=== PATIENT | female | born 1970 | race Caucasian/White ===

== ENCOUNTER 2021-05-05 19:52 | Inpatient (IN) | payer BC ==
[2021-05-05] MEDS ORDERED: MORPHINE SULFATE 4 MG/ML SYRINGE IV STA (19:59)
[2021-05-05] MEDS ORDERED: SODIUM CHLORIDE 0.9% 1,000 ML IV STA ×2 (19:59→21:05)
[2021-05-05] MEDS ORDERED: ONDANSETRON 4 MG/2 ML VIAL IVP STA (19:59)
[2021-05-05 20:27] LABS: Basophils % (A) 1 %; Eosinophils # (A) 0.2 k/uL (0-0.7); Eosinophils % (A) 3 %; HCT 41.6 % (34.0-46.0); HGB 14.4 gm/dL (11.4-16.0); Lymphocytes # (A) 3.6 k/uL (1.0-4.8); Lymphocytes % (A) 47 %; MCH 31.2 pg (25.0-35.0); MCHC 34.5 g/dL (31.0-37.0); MCV 90.4 fL (80.0-100.0); Mean Platelet Volume 7.6; Monocytes # (A) 0.3 k/uL (0-1.0); Monocytes % (A) 4 %; Neutrophils # (A) 3.4 k/uL (1.3-7.7); Neutrophils % (A) 44 %; Platelet Count 282 k/uL (150-450); RBC 4.61 m/uL (3.80-5.40); RDW 11.8 % (11.5-15.5); WBC 7.7 k/uL (3.8-10.6)
[2021-05-05 20:33] LABS: Appearance,Urine Clear (Clear); Bilirubin,Urine Negative (Negative); Blood,Urine Negative (Negative); Color,Urine Light Yellow; Glucose,Urine (UA) Negative (Negative); Ketones,Urine Negative (Negative); Leukocyte Esterase,Urine Negative (Negative); Nitrite,Urine Negative (Negative); Protein,Urine Negative (Negative); Specific Gravity,Urine 1.006 (1.001-1.035); Urobilinogen,Urine <2.0 mg/dL (<2.0)
[2021-05-05 20:38] LABS: ALT 126 U/L (4-34); AST 296 U/L (14-36); African American GFR (CKD) >90 (>60 ml/min/1.73 sqM); Albumin 5.1 g/dL (3.5-5.0); Alkaline Phosphatase 155 U/L (38-126); Anion Gap 14 mmol/L; Blood Urea Nitrogen 16 mg/dL (7-17); Calcium 9.7 mg/dL (8.4-10.2); Carbon Dioxide 21 mmol/L (22-30); Chloride 105 mmol/L (98-107); Glucose 73 mg/dL (74-99); Non-African American GFR(CKD) >90 (>60 ml/min/1.73 sqM); Potassium 4.3 mmol/L (3.5-5.1); Sodium 140 mmol/L (137-145); Total Protein 8.4 g/dL (6.3-8.2)
[2021-05-05 20:44] LABS: Amylase 909 U/L (30-110)
[2021-05-05 20:59] LABS: Lipase 16271 U/L (23-300)
[2021-05-05] MEDS ORDERED: HYDROmorphone 1 MG/ML 1 ML SYRINGE IVP STA (21:05)
[2021-05-05] MEDS ORDERED: NALOXONE 0.4 MG/ML 1 ML VIAL IV PRN (21:11)
[2021-05-05] MEDS ORDERED: SODIUM CHLORIDE 0.9% 1,000 ML IV SCH (21:15)
--- NOTE | 2021-05-05 21:15 | ED ---
Abdominal Pain HPI - General Source: patient, RN notes reviewed Mode of arrival: ambulatory Limitations: no limitations <Chirag Stephenson - Last Filed: 05/05/21 21:12> <Katie Gilman - Last Filed: 05/09/21 23:41> - General Chief Complaint: Abdominal Pain Stated Complaint: Abd pain,Chest Pain Time Seen by Provider: 05/05/21 19:59 - History of Present Illness Initial Comments: Patient is a 50-year-old female that presents to the emergency department complaining of epigastric burning pain with radiation to her chest. She notes that she does have a history of pancreatitis and this feels exactly like last time she had a flareup. Patient notes that been years since her last pancreatitis. She was otherwise well-appearing. She denied any aggravating factors. She notes she doesn't drink large coryza alcohol. She was in pretty severe discomfort and in tears during the interview. She denied shortness of breath headache diarrhea constipation fever fatigue chills. (Chirag Stephenson) - Related Data Home Medications Medication Instructions Recorded Confirmed DULoxetine HCL [Cymbalta] 30 mg PO HS 05/05/21 05/05/21 Allergies Allergy/AdvReac Type Severity Reaction Status Date / Time No Known Allergies Allergy Verified 05/05/21 19:58 Review of Systems ROS Other: All systems not noted in ROS Statement are negative. <Chirag Stephenson - Last Filed: 05/05/21 21:12> ROS Other: All systems not noted in ROS Statement are negative. <Katie Gilman - Last Filed: 05/09/21 23:41> ROS Statement: Those systems with pertinent positive or pertinent negative responses have been documented in the HPI. Past Medical History Additional Past Medical History / Comment(s): pancreatitis History of Any Multi-Drug Resistant Organisms: None Reported Past Surgical History: No Surgical Hx Reported Past Psychological History: No Psychological Hx Reported Smoking Status: Former smoker Past Alcohol Use History: Rare Past Drug Use History: None Reported <Chirag Stephenson - Last Filed: 05/05/21 21:12> General Exam Limitations: no limitations General appearance: alert, in no apparent distress Head exam: Present: atraumatic, normocephalic, normal inspection Eye exam: Present: normal appearance, PERRL, EOMI. Absent: scleral icterus, conjunctival injection, periorbital swelling ENT exam: Present: normal exam, mucous membranes moist Neck exam: Present: normal inspection Respiratory exam: Present: normal lung sounds bilaterally. Absent: respiratory distress, wheezes, rales, rhonchi, stridor Cardiovascular Exam: Present: regular rate, normal rhythm, normal heart sounds. Absent: systolic murmur, diastolic murmur, rubs, gallop, clicks GI/Abdominal exam: Present: soft, tenderness (Epigastric region), normal bowel sounds. Absent: distended, guarding, rebound, rigid Extremities exam: Present: normal inspection, full ROM, normal capillary refill. Absent: tenderness, pedal edema, joint swelling, calf tenderness Neurological exam: Present: alert, oriented X3 Psychiatric exam: Present: normal affect, normal mood Skin exam: Present: warm, dry, intact, normal color. Absent: rash <Chirag Stephenson - Last Filed: 05/05/21 21:12> Course Vital Signs 05/05/21 05/05/21 19:54 22:06 Temperature 97.7 F 97.1 F L Pulse Rate 83 96 Respiratory 18 18 Rate Blood Pressure 140/67 122/71 O2 Sat by Pulse 97 99 Oximetry Medical Decision Making - Lab Data Result diagrams: 05/05/21 20:20 05/05/21 20:20 - EKG Data -: EKG Interpreted by Ca EKG shows normal: sinus rhythm Rate: normal <Chirag Stephenson - Last Filed: 05/05/21 21:12> - Lab Data Result diagrams: 05/09/21 06:48 05/09/21 06:48 <Katie Gilman - Last Filed: 05/09/21 23:41> - Medical Decision Making 50-year-old female complaining of epigastric pain. Labs, 1 L normal saline, 4 g of morphine, 4 mg of Zofran ordered. Labs: CBC unremarkable, CMP shows elevated liver enzymes negative troponin elevated amylase at 909, elevated lipase at 16,000, urinalysis is negative. 1 mg of Dilaudid and 1 more liter of normal saline ordered. CT of the abdomen and pelvis ordered. Case discussed with Dr. Gilman, patient will be admitted. Dr. Carmona was consulted and will accept the admit. (Chirag Stephenson) I was available for consultation in the emergency department. The history and physical exam were done by the midlevel provider. I was consulted for this patients care. I reviewed the case with the midlevel provider and based on their presentation of the patient, I agree with the assessment, medical decision making and plan of care as documented. Chart was dictated using [employer] dictation software. Attempts were made to correct any dictation errors however some typographical errors may persist. Patient was seen during a national state of emergency due to the Covid-19 pandemic. (Katie Gilman) - Lab Data Lab Results 05/05/21 05/05/21 05/05/21 Range/Units 20:20 20:20 20:20 WBC 7.7 (3.8-10.6) k/uL RBC 4.61 (3.80-5.40) m/uL Hgb 14.4 (11.4-16.0) gm/dL Hct 41.6 (34.0-46.0) % MCV 90.4 (80.0-100.0) fL MCH 31.2 (25.0-35.0) pg MCHC 34.5 (31.0-37.0) g/dL RDW 11.8 (11.5-15.5) % Plt Count 282 (150-450) k/uL MPV 7.6 Neutrophils % 44 % Lymphocytes % 47 % Monocytes % 4 % Eosinophils % 3 % Basophils % 1 % Neutrophils # 3.4 (1.3-7.7) k/uL Lymphocytes # 3.6 (1.0-4.8) k/uL Monocytes # 0.3 (0-1.0) k/uL Eosinophils # 0.2 (0-0.7) k/uL Basophils # 0.0 (0-0.2) k/uL Sodium 140 (137-145) mmol/L Potassium 4.3 (3.5-5.1) mmol/L Chloride 105 (98-107) mmol/L Carbon Dioxide 21 L (22-30) mmol/L Anion Gap 14 mmol/L BUN 16 (7-17) mg/dL Creatinine 0.67 (0.52-1.04) mg/dL Est GFR (CKD-EPI)AfAm >90 (>60 ml/min/1.73 sqM) Est GFR (CKD-EPI)NonAf >90 (>60 ml/min/1.73 sqM) Glucose 73 L (74-99) mg/dL Calcium 9.7 (8.4-10.2) mg/dL Total Bilirubin 1.0 (0.2-1.3) mg/dL AST 296 H (14-36) U/L ALT 126 H (4-34) U/L Alkaline Phosphatase 155 H (38-126) U/L Troponin I (0.000-0.034) ng/mL Total Protein 8.4 H (6.3-8.2) g/dL Albumin 5.1 H (3.5-5.0) g/dL Amylase 909 H* (30-110) U/L Lipase 88016 H (23-300) U/L Urine Color Light Yellow Urine Appearance Clear (Clear) Urine pH 5.0 (5.0-8.0) Ur Specific [place] 1.006 (1.001-1.035) Urine Protein Negative (Negative) Urine Glucose (UA) Negative (Negative) Urine Ketones Negative (Negative) Urine Blood Negative (Negative) Urine Nitrite Negative (Negative) Urine Bilirubin Negative (Negative) Urine Urobilinogen <2.0 (<2.0) mg/dL Ur Leukocyte Esterase Negative (Negative) 05/05/21 Range/Units 20:20 WBC (3.8-10.6) k/uL RBC (3.80-5.40) m/uL Hgb (11.4-16.0) gm/dL Hct (34.0-46.0) % MCV (80.0-100.0) fL MCH (25.0-35.0) pg MCHC (31.0-37.0) g/dL RDW (11.5-15.5) % Plt Count (150-450) k/uL MPV Neutrophils % % Lymphocytes % % Monocytes % % Eosinophils % % Basophils % % Neutrophils # (1.3-7.7) k/uL Lymphocytes # (1.0-4.8) k/uL Monocytes # (0-1.0) k/uL Eosinophils # (0-0.7) k/uL Basophils # (0-0.2) k/uL Sodium (137-145) mmol/L Potassium (3.5-5.1) mmol/L Chloride (98-107) mmol/L Carbon Dioxide (22-30) mmol/L Anion Gap mmol/L BUN (7-17) mg/dL Creatinine (0.52-1.04) mg/dL Est GFR (CKD-EPI)AfAm (>60 ml/min/1.73 sqM) Est GFR (CKD-EPI)NonAf (>60 ml/min/1.73 sqM) Glucose (74-99) mg/dL Calcium (8.4-10.2) mg/dL Total Bilirubin (0.2-1.3) mg/dL AST (14-36) U/L ALT (4-34) U/L Alkaline Phosphatase (38-126) U/L Troponin I <0.012 (0.000-0.034) ng/mL Total Protein (6.3-8.2) g/dL Albumin (3.5-5.0) g/dL Amylase (30-110) U/L Lipase (23-300) U/L Urine Color Urine Appearance (Clear) Urine pH (5.0-8.0) Ur Specific [place] (1.001-1.035) Urine Protein (Negative) Urine Glucose (UA) (Negative) Urine Ketones (Negative) Urine Blood (Negative) Urine Nitrite (Negative) Urine Bilirubin (Negative) Urine Urobilinogen (<2.0) mg/dL Ur Leukocyte Esterase (Negative) - EKG Data EKG Comments: Ventricular rate 81 bpm, SD interval 166 ms, QRS duration 80 ms, QTC 473 ms, PRT axes 68/68/12. Normal sinus rhythm, nonspecific T-wave abnormality, prolonged QT, abnormal ECG. (Chirag Stephenson) Disposition Is patient prescribed a controlled substance at d/c from ED?: No Time of Disposition: 21:14 <Chirag Stephenson - Last Filed: 05/05/21 21:12> <Katie Gilman - Last Filed: 05/09/21 23:41> Clinical Impression: Pancreatitis Disposition: ADMITTED IP TO THIS HOSP Condition: Stable
--- NOTE | 2021-05-05 22:18 | CT ---
EXAMINATION TYPE: CT abdomen pelvis w con DATE OF EXAM: 05/05/2021 COMPARISON: None HISTORY: RLQ pain CT DLP: 658.4 mGycm Automated exposure control for dose reduction was used. CONTRAST: Performed with IV Contrast, patient injected with 100 mL of Isovue 300. Images obtained from the diaphragm to the floor the pelvis with IV contrast. Lung bases are clear. There is no pleural effusion. Heart size is normal. There is no pericardial eff usion. Liver spleen stomach pancreas appear intact. There are clips from cholecystectomy. There is mi ld ectasia of the biliary tree. Intrahepatic bile ducts are slightly dilated. The common bile duct me asures 13 mm. There is no adrenal mass. Kidneys show satisfactory contrast opacification. There is no hydronephrosi s. Ureters are not dilated. Bladder distends smoothly. There is no inguinal hernia. There is no free fluid in the pelvis. There is no evidence of pelvic mass. Uterus is anteverted. There are clips from tubal ligation. There is no mesenteric edema. There is no ascites or free air. There is no bowel obstruction. Appendi x not seen. No sign of thickened appendix. Lumbar vertebra have normal alignment. Posterior elements are intact. There is no compression fractur e. Bony pelvis is intact. IMPRESSION: Mildly dilated biliary tree. No evidence of a mass in the distal common bile duct. Appendix not seen. No sign of thickened appendix.
[2021-05-05] MEDS ORDERED: ALPRAZolam 1 MG TAB PO STA (22:40)
[2021-05-05] MEDS ORDERED: MELATONIN 3 MG TABLET PO PRN (22:58)
[2021-05-05] MEDS ORDERED: ACETAMINOPHEN TAB 325 MG TAB PO PRN (22:58)
[2021-05-05] MEDS ORDERED: HYDROmorphone 1 MG/ML 1 ML SYRINGE IV PRN (22:58)
[2021-05-05] MEDS ORDERED: bisacodyL 5 MG TABLET.DR PO PRN (22:58)
--- NOTE | 2021-05-05 23:06 | P.HPIM ---
History of Present Illness H&P Date: 05/05/21 Chief Complaint: abdominal pain Patient is a 50-year-old female with a past medical history of pancreatitis who presented to the ER with complaints of abdominal pain. On arrival to the ER her vital signs were within normal limits. Laboratory analysis showed elevated AST, elevated ALT, lipase 16,271, amylase 999. She was found have an elevated albumin and total protein. CT abdomen and pelvis showed prior cholecystectomy with mildly dilated biliary tree. In the ER she received 1 mg of Dilaudid, 4 mg of morphine, and 2 L of normal saline. She was admitted for further monitoring. Patient seen and examined at bedside. This morning prior to work she had several episodes of diarrhea which is unusual for her. she then came home from work was doing well. She had several glasses of wine and then started having pain on the left side of her abdomen that wrapped around. It quickly worsen. She also started having nausea and vomiting. They therefore presented to the ER as this is similar to her prior episodes of pancreatitis. her last hospitalization for pancreatitis was 3-4 years ago. She states she started having pancreatitis after ERCP. She has been eating more sweets than typical but denies any increased fatty intake. She typically drinks 3-4 times monthly. She was having some chills at home as well. Pertinent positives and negatives as discussed in HPI, a complete review of systems was performed and all other systems are negative. General: non toxic, no distress, appears at stated age Derm: warm, dry Head: atraumatic, normocephalic, symmetric Eyes: EOMI, no lid lag, anicteric sclera, pupils equal round reactive to light ENT: Nose and ears atraumatic, no thrush, no pharyngeal erythema Mouth: no lip lesion, mucus membranes dry Cardiovascular: S1S2 reg, no murmur, positive posterior tibial pulse bilateral, no edema, capillary refill less than 2 seconds Lungs: clear to ascultation bilateral, no ronchi, no rales, no wheeze, no accessory muscle use Abdominal: soft, hypoactive bowel sounds, pain with placing my stethoscope on abd Ext: no gross muscle atrophy, muscle strength muscle strengthappears equal and symmetrical 4 extremities on gross examination, no contractures Neuro: CN II-XI grossly intact, no focal nuero deficits noted Psych: Alert, oriented, appropriate affect Assessment/Plan: Acute pancreatitis with history of prior pancreatitis - NPO - IVF - pain control - antiemeitcs - check triglyceride level Transaminitis Elevated serum protein levels - IVF - repeat in AM The patient is admitted with an anticipated greater than 2 midnight stay for evaluation of Pancreatitis Surrogate decision-maker: DVT prophylaxis: Lovenox Discussed with: patient, nursing, ED provider, and Anticipated discharge date: in 2-[address]: home A total of 45minutes was spent on the care of this complex patient more than 50% of the time was spent in counseling and care coordination. Past Medical History Additional Past Medical History / Comment(s): pancreatitis History of Any Multi-Drug Resistant Organisms: None Reported Past Surgical History: Appendectomy, Cholecystectomy, Tonsillectomy Past Psychological History: No Psychological Hx Reported Smoking Status: Former smoker Past Alcohol Use History: Occasional (etoh 3-4 times monthly ) Past Drug Use History: None Reported Medications and Allergies Home Medications Medication Instructions Recorded Confirmed Type DULoxetine HCL [Cymbalta] 30 mg PO HS 05/05/21 05/05/21 History Allergies Allergy/AdvReac Type Severity Reaction Status Date / Time No Known Allergies Allergy Verified 05/05/21 19:58 Physical Exam Osteopathic Statement: *. No significant issues noted on an osteopathic st ructural exam other than those noted in the History and Physical/Consult. Vitals: Vital Signs Temp Pulse Resp BP Pulse Ox 05/05/21 22:06 97.1 F L 96 18 122/71 99 05/05/21 19:54 97.7 F 83 18 140/67 97 Intake and Output 05/05/21 05/05/21 05/05/21 06:59 14:59 22:59 Other: Weight 63.503 kg Results CBC & Chem 7: 05/05/21 20:20 05/05/21 20:20 Labs: Abnormal Lab Results - Last 24 Hours (Table) 05/05/21 Range/Units 20:20 Carbon Dioxide 21 L (22-30) mmol/L Glucose 73 L (74-99) mg/dL AST 296 H (14-36) U/L ALT 126 H (4-34) U/L Alkaline Phosphatase 155 H (38-126) U/L Total Protein 8.4 H (6.3-8.2) g/dL Albumin 5.1 H (3.5-5.0) g/dL Amylase 909 H* (30-110) U/L Lipase 42883 H (23-300) U/L
[2021-05-05] MEDS: HYDROmorphone 1 MG/ML 1 ML SYRINGE IVP PRN (23:16)
[2021-05-05] MEDS: ONDANSETRON 4 MG/2 ML VIAL IVP PRN (23:19)
[2021-05-05] MEDS: LACTATED RINGERS 1,000 ML IV SCH (23:41)
[2021-05-06 05:28] LABS: HCT 36.2 % (34.0-46.0); HGB 12.6 gm/dL (11.4-16.0); MCH 32.3 pg (25.0-35.0); MCHC 34.9 g/dL (31.0-37.0); MCV 92.7 fL (80.0-100.0); Mean Platelet Volume 7.6; Platelet Count 225 k/uL (150-450); RBC 3.91 m/uL (3.80-5.40); RDW 11.8 % (11.5-15.5); WBC 6.2 k/uL (3.8-10.6)
[2021-05-06] MEDS: HYDROmorphone 0.5 MG/0.5 ML SYRINGE IVP PRN ×5 (05:31→19:48)
[2021-05-06] MEDS: LACTATED RINGERS 1,000 ML IV SCH ×3 (05:33→19:53)
[2021-05-06 05:38] LABS: ALT 188 U/L (4-34); AST 274 U/L (14-36); African American GFR (CKD) >90 (>60 ml/min/1.73 sqM); Albumin 3.6 g/dL (3.5-5.0); Albumin/Globulin Ratio 1.4; Alkaline Phosphatase 98 U/L (38-126); Anion Gap 8 mmol/L; Blood Urea Nitrogen 11 mg/dL (7-17); Calcium 8.3 mg/dL (8.4-10.2); Carbon Dioxide 23 mmol/L (22-30); Chloride 108 mmol/L (98-107); Globulin 2.5 g/dL; Glucose 106 mg/dL (74-99); Non-African American GFR(CKD) >90 (>60 ml/min/1.73 sqM); Potassium 4.3 mmol/L (3.5-5.1); Sodium 139 mmol/L (137-145); Total Bilirubin 0.8 mg/dL (0.2-1.3); Total Protein 6.1 g/dL (6.3-8.2)
[2021-05-06] MEDS: ENOXAPARIN 40 MG/0.4 ML SYRINGE SQ SCH (07:57)
[2021-05-06 10:13] LABS: Triglycerides 90.7 mg/dL (0.00-149.00)
--- NOTE | 2021-05-06 10:42 | P.PN ---
Subjective Progress Note Date: 05/06/21 Pt still c/o significant pain in the abdomen. TG levels pending. Ongoing IVF and IV pain medication. NPO for another 24 hours. Objective - Vital Signs Vital signs: Vital Signs Temp 97.7 F 05/06/21 08:12 Pulse 64 05/06/21 08:12 Resp 14 05/06/21 08:12 BP 105/71 05/06/21 08:12 Pulse Ox 96 05/06/21 08:12 Intake & Output 05/05/21 05/06/21 05/06/21 18:59 06:59 18:59 Intake Total 150 Balance 150 Weight 63.503 kg Intake: Intake, IV Titration 150 Amount Lactated Ringers 1,000 ml 150 @ 150 mls/hr IV .Q6H40M [facility] Rx#:[id number] Other: Voiding Method Toilet # Voids 2 # Bowel Movements 1 - Exam Gen: awake, alert HEENT: normocephalic, atraumatic, good hearing acuity, moist mucous membranes Resp: good air exchange, breathing comfortably with no accessory muscle use CVS: good distal perfusion x 4, GI: epigastric ttp : no SPT, no CVAT, roblero catheter not present MSK: no pitting edema, no clubbing Neuro: non-focal, moving all extremities Psych: cooperative, euthymic mood - Labs CBC & Chem 7: 05/06/21 04:44 05/06/21 04:44 Labs: Abnormal Lab Results - Last 24 Hours (Table) 05/05/21 05/06/21 05/06/21 Range/Units 20:20 04:44 04:44 Chloride 108 H (98-107) mmol/L Carbon Dioxide 21 L (22-30) mmol/L Glucose 73 L 106 H (74-99) mg/dL Calcium 8.3 L (8.4-10.2) mg/dL AST 296 H 274 H (14-36) U/L ALT 126 H 188 H (4-34) U/L Alkaline Phosphatase 155 H (38-126) U/L Total Protein 8.4 H 6.1 L (6.3-8.2) g/dL Albumin 5.1 H (3.5-5.0) g/dL Amylase 909 H* (30-110) U/L Lipase 65290 H 1710 H (23-300) U/L Assessment and Plan Assessment: Acute pancreatitis with history of prior pancreatitis - NPO for another 24 hours, then slowly advance - IVF - pain control - antiemeitcs - check triglyceride level Transaminitis Elevated serum protein levels - IVF to be continued - continue to monitor, likely related to pancreatic flare, lipase is improved, total protein has come down to 6.1 Surrogate decision-maker: DVT prophylaxis: Lovenox Anticipated discharge date: in [address]: home
[2021-05-06] MEDS: ONDANSETRON 4 MG/2 ML VIAL IVP PRN (17:02)
[2021-05-06] MEDS: DULoxetine HCL 30 MG CAPSULE.DR PO SCH (19:48)
--- NOTE | 2021-05-07 08:23 | P.PN ---
Subjective Progress Note Date: 05/07/21 Principal diagnosis: abdominal pain Patient is a 50-year-old female with a past medical history of pancreatitis who presented to the ER with complaints of abdominal pain. On arrival to the ER her vital signs were within normal limits. Laboratory analysis showed elevated AST, elevated ALT, lipase 16,271, amylase 999. She was found have an elevated albumin and total protein. CT abdomen and pelvis showed prior cholecystectomy with mildly dilated biliary tree. In the ER she received 1 mg of Dilaudid, 4 mg of morphine, and 2 L of normal saline. She was admitted for further monitoring. Patient seen and examined at bedside. Her Belly pain is much better. No shortness of breath, No nausea. She has only been having ice chip. General: non toxic, no distress, appears at stated age Derm: warm, dry Head: atraumatic, normocephalic, symmetric Eyes: EOMI, no lid lag, anicteric sclera Mouth: no lip lesion, mucus membranes dry Cardiovascular: S1S2 reg, no murmur, positive posterior tibial pulse bilateral, Lungs: CTA bilateral, no rhonchi, no rales , no accessory muscle use Abdominal: soft, + tender to palpation diffusely, no guarding, no appreciable organomegaly Ext: no gross muscle atrophy, no edema, no contractures Neuro: CN II-XI grossly intact, no focal neuro deficits Psych: Alert, oriented, appropriate affect Assessment/Plan: Acute pancreatitis with history of prior pancreatitis - advance to clear liquid diet, if tolerated advance to fulls - IVF decreased by 1/2 - pain control , oral added - antiemeitcs - triglyceride level normal Transaminitis, improving - repeat in AM Elevated serum protein level, resolved Await AM labs DVT prophylaxis: Lovenox Discussed with: Patient, nursing Anticipated discharge: in AM Anticipated discharge place: home A total of 35] minutes was spent on the care of this complex patient more than 50% of the time was spent in counseling and care coordination. Objective - Vital Signs Vital signs: Vital Signs Temp 98.9 F 05/07/21 02:00 Pulse 76 05/07/21 02:00 Resp 16 05/07/21 02:00 BP 118/73 05/07/21 02:00 Pulse Ox 98 05/07/21 02:00 Intake & Output 12/24/21 12/25/21 12/25/21 18:59 06:59 18:59 Intake Total 1650 Balance 1650 Intake: Intake, IV Titration 1650 Amount Lactated Ringers 1,000 ml 1650 @ 150 mls/hr IV .Q6H40M [facility] Rx#:[id number] Other: Voiding Method Toilet # Voids 2 3 # Bowel Movements 1 - Labs CBC & Chem 7: 05/06/21 04:44 05/06/21 04:44 Labs: Abnormal Lab Results - Last 24 Hours (Table) 05/06/21 Range/Units 04:44 Lipase 1710 H (14-63) U/L
[2021-05-07] MEDS: LACTATED RINGERS 1,000 ML IV SCH ×3 (08:40→23:05)
[2021-05-07] MEDS: HYDROmorphone 1 MG/ML 1 ML SYRINGE IVP PRN ×3 (08:41→17:47)
[2021-05-07] MEDS: ENOXAPARIN 40 MG/0.4 ML SYRINGE SQ SCH (08:41)
[2021-05-07 09:05] LABS: Basophils # (A) 0.03 X 10*3/uL (0.00-0.10); Basophils % (A) 0.5 %; Eosinophils # (A) 0.12 X 10*3/uL (0.04-0.35); Eosinophils % (A) 1.8 %; HCT 33.3 % (37.2-46.3); HGB 11.3 g/dL (12.0-15.0); Lymphocytes # (A) 2.27 X 10*3/uL (0.90-5.00); Lymphocytes % (A) 34.4 %; MCH 31.6 pg (27.0-32.0); MCHC 33.9 g/dL (32.0-37.0); Mean Platelet Volume 10.8 fL (9.5-12.2); Monocytes # (A) 0.37 X 10*3/uL (0.20-1.00); Monocytes % (A) 5.6 %; Neutrophils # (A) 3.78 X 10*3/uL (1.80-7.70); Neutrophils % (A) 57.4 %; Platelet Count 213 X 10*3/uL (140-440); RBC 3.58 X 10*6/uL (4.10-5.20); RDW 11.9 % (11.5-14.5); WBC 6.59 X 10*3/uL (4.50-10.00)
[2021-05-07 09:23] LABS: African American GFR (CKD) 123.2 (60.0-200.0); Anion Gap 13.3 mmol/L (10.00-18.00); BUN/Creat Ratio 13.67 Ratio (12.00-20.00); Blood Urea Nitrogen 8.2 mg/dL (9.0-27.0); Calcium 8.3 mg/dL (8.7-10.3); Carbon Dioxide 20.7 mmol/L (20.0-27.5); Magnesium 1.5 mg/dL (1.5-2.4); Non-African American GFR(CKD) 106.3 (60.0-200.0); Potassium 4.5 mmol/L (3.5-5.5)
[2021-05-07 10:42] LABS: Glucose,Whole Blood 80 mg/dL (75-99)
[2021-05-07] MEDS: MAGNESIUM SULFATE-D5W PMX 1 GM in DEXTROSE/WATER 1 100ML.BAG IVPB SCH ×2 (11:57→13:35)
[2021-05-07] MEDS: DULoxetine HCL 30 MG CAPSULE.DR PO SCH (19:46)
[2021-05-07] MEDS: HYDROcodone/APAP 5-325MG 1 EACH TAB PO PRN (23:28)
[2021-05-08] MEDS: ENOXAPARIN 40 MG/0.4 ML SYRINGE SQ SCH (08:59)
[2021-05-08] MEDS: HYDROcodone/APAP 5-325MG 1 EACH TAB PO PRN ×2 (08:59→14:00)
[2021-05-08] MEDS: LACTATED RINGERS 1,000 ML IV SCH (09:00)
[2021-05-08] MEDS: ONDANSETRON 4 MG/2 ML VIAL IVP PRN ×2 (14:00→19:30)
--- NOTE | 2021-05-08 17:08 | P.PN ---
Subjective Progress Note Date: 05/08/21 (delayed charting seen at 0930) Principal diagnosis: abdominal pain Patient is a 50-year-old female with a past medical history of pancreatitis who presented to the ER with complaints of abdominal pain. On arrival to the ER her vital signs were within normal limits. Laboratory analysis showed elevated AST, elevated ALT, lipase 16,271, amylase 999. She was found have an elevated albumin and total protein. CT abdomen and pelvis showed prior cholecystectomy with mildly dilated biliary tree. In the ER she received 1 mg of Dilaudid, 4 mg of morphine, and 2 L of normal saline. She was admitted for further monitoring. She was placed on IV fluids. These were decreased morning of 05/07 that she felt she couldn't tolerate a diet, however she was unable to tolerate clear li quids consistently. Patient seen and examined at bedside. She tolerated Warm clear liquids but not cold clear liquid chest pain. It caused her to have some nausea and thinks that "not sit right" in her belly. Today her belly is feeling better and she is not having any nausea. She again wants to try to advance her diet. General: non toxic, no distress, appears at stated age Derm: warm, dry Head: atraumatic, normocephalic, symmetric Eyes: EOMI, no lid lag, anicteric sclera Mouth: no lip lesion, mucus membranes dry Cardiovascular: S1S2 reg, no murmur, positive posterior tibial pulse bilateral, Lungs: CTA bilateral, no rhonchi, no rales , no accessory muscle use Abdominal: soft, + tender to palpation diffusely, no guarding, no appreciable organomegaly Ext: no gross muscle atrophy, no edema, no contractures Neuro: CN II-XI grossly intact, no focal neuro deficits Psych: Alert, oriented, appropriate affect Assessment/Plan: Acute pancreatitis with history of prior pancreatitis Transaminitis, improving Elevated serum protein level, resolved - Continue IV fluids -Advance to full liquid diet -Pain medications -Antiemetics - possible home this afternoon if feels improved, if not repeat labs in a.m. Await AM labs DVT prophylaxis: Lovenox Discussed with: Patient, nursing Anticipated discharge: in AM Anticipated discharge place: home A total of 20 minutes was spent on the care of this complex patient more than 50% of the time was spent in counseling and care coordination. Objective - Vital Signs Vital signs: Vital Signs Temp 98.6 F 05/08/21 14:00 Pulse 56 L 05/08/21 14:00 Resp 16 05/08/21 14:00 BP 138/84 05/08/21 14:00 Pulse Ox 96 05/08/21 14:00 Intake & Output 05/07/21 05/08/21 05/08/21 18:59 06:59 18:59 Other: Voiding Method Toilet Toilet # Voids 3 3 - Labs CBC & Chem 7: 05/07/21 05:16 05/07/21 05:16
[2021-05-08] MEDS: HYDROmorphone 1 MG/ML 1 ML SYRINGE IVP PRN (17:17)
[2021-05-08] MEDS: DULoxetine HCL 30 MG CAPSULE.DR PO SCH (19:28)
[2021-05-09] MEDS: HYDROcodone/APAP 5-325MG 1 EACH TAB PO PRN ×3 (00:48→22:13)
[2021-05-09] MEDS: LACTATED RINGERS 1,000 ML IV SCH ×2 (03:04→18:37)
[2021-05-09 07:09] LABS: HCT 35.7 % (34.0-46.0); HGB 12.1 gm/dL (11.4-16.0); MCH 32.1 pg (25.0-35.0); MCV 94.3 fL (80.0-100.0); Mean Platelet Volume 7.7; Platelet Count 191 k/uL (150-450); RBC 3.79 m/uL (3.80-5.40); RDW 11.6 % (11.5-15.5); WBC 3.5 k/uL (3.8-10.6)
[2021-05-09 07:20] LABS: ALT 122 U/L (4-34); AST 92 U/L (14-36); African American GFR (CKD) >90 (>60 ml/min/1.73 sqM); Albumin 3.4 g/dL (3.5-5.0); Albumin/Globulin Ratio 1.4; Alkaline Phosphatase 80 U/L (38-126); Anion Gap 6 mmol/L; Blood Urea Nitrogen 5 mg/dL (7-17); Calcium 8.7 mg/dL (8.4-10.2); Carbon Dioxide 28 mmol/L (22-30); Chloride 103 mmol/L (98-107); Globulin 2.5 g/dL; Glucose 74 mg/dL (74-99); Non-African American GFR(CKD) >90 (>60 ml/min/1.73 sqM); Potassium 3.9 mmol/L (3.5-5.1); Sodium 137 mmol/L (137-145); Total Bilirubin 1.1 mg/dL (0.2-1.3); Total Protein 5.9 g/dL (6.3-8.2)
[2021-05-09] MEDS: ENOXAPARIN 40 MG/0.4 ML SYRINGE SQ SCH (08:49)
[2021-05-09] MEDS: ONDANSETRON 4 MG/2 ML VIAL IVP PRN (13:51)
--- NOTE | 2021-05-09 17:12 | P.PN ---
Subjective Progress Note Date: 05/09/21 (delayed charting seen at 1005) Principal diagnosis: abdominal pain Patient is a 50-year-old female with a past medical history of pancreatitis who presented to the ER with complaints of abdominal pain. On arrival to the ER her vital signs were within normal limits. Laboratory analysis showed elevated AST, elevated ALT, lipase 16,271, amylase 999. She was found have an elevated albumin and total protein. CT abdomen and pelvis showed prior cholecystectomy with mildly dilated biliary tree. In the ER she received 1 mg of Dilaudid, 4 mg of morphine, and 2 L of normal saline. She was admitted for further monitoring. She was placed on IV fluids. These were decreased morning of 05/07 that she felt she couldn't tolerate a diet, however she was unable to tolerate clear li quids consistently. Patient seen and examined at bedside. More pain today, did not tolerate full li quid, will go back to clears. No chest pain, no shortness of breath, mild nausea. General: non toxic, no distress, appears at stated age Derm: warm, dry Head: atraumatic, normocephalic, symmetric Eyes: EOMI, no lid lag, anicteric sclera Mouth: no lip lesion, mucus membranes dry Cardiovascular: S1S2 reg, no murmur, positive posterior tibial pulse bilateral, Lungs: Decreased bs bilateral, no rhonchi, no rales , no accessory muscle use Abdominal: soft, + tender to palpation diffusely, no guarding, no appreciable organomegaly Ext: no gross muscle atrophy, no edema, no contractures Neuro: CN II-XI grossly intact, no focal neuro deficits Psych: Alert, oriented, appropriate affect Assessment/Plan: Acute pancreatitis with history of prior pancreatitis Transaminitis, improving Elevated serum protein level, resolved - Continue IV fluids - Clear liquid diet - Pain medications - Antiemetics - Repeat CMP and lipase in AM DVT prophylaxis: Lovenox Discussed with: Patient, nursing Anticipated discharge: in 2-[address]: home A total of 20 minutes was spent on the care of this complex patient more than 50% of the time was spent in counseling and care coordination. Objective - Vital Signs Vital signs: Vital Signs Temp 98.0 F 05/09/21 14:00 Pulse 50 L 05/09/21 14:00 Resp 18 05/09/21 14:00 BP 134/82 05/09/21 14:00 Pulse Ox 95 05/09/21 14:00 Intake & Output 05/08/21 05/09/21 05/09/21 18:59 06:59 18:59 Other: Voiding Method Toilet Toilet # Voids 3 2 - Labs CBC & Chem 7: 05/09/21 06:48 05/09/21 06:48 Labs: Abnormal Lab Results - Last 24 Hours (Table) 05/09/21 05/09/21 Range/Units 06:48 06:48 WBC 3.5 L (3.8-10.6) k/uL RBC 3.79 L (3.80-5.40) m/uL BUN 5 L (7-17) mg/dL AST 92 H (14-36) U/L ALT 122 H (4-34) U/L Total Protein 5.9 L (6.3-8.2) g/dL Albumin 3.4 L (3.5-5.0) g/dL
[2021-05-09] MEDS: DULoxetine HCL 30 MG CAPSULE.DR PO SCH (19:23)
[2021-05-09] MEDS: LOPERAMIDE 2 MG CAP PO PRN (23:12)
[2021-05-10] MEDS: HYDROmorphone 1 MG/ML 1 ML SYRINGE IVP PRN (00:12)
[2021-05-10] MEDS: LACTATED RINGERS 1,000 ML IV SCH ×2 (00:15→09:18)
[2021-05-10 08:34] LABS: ALT 121 U/L (4-34); AST 99 U/L (14-36); African American GFR (CKD) >90 (>60 ml/min/1.73 sqM); Albumin 3.7 g/dL (3.5-5.0); Albumin/Globulin Ratio 1.5; Alkaline Phosphatase 84 U/L (38-126); Anion Gap 12 mmol/L; Blood Urea Nitrogen 6 mg/dL (7-17); Calcium 8.7 mg/dL (8.4-10.2); Carbon Dioxide 26 mmol/L (22-30); Chloride 100 mmol/L (98-107); Globulin 2.5 g/dL; Lipase 159 U/L (23-300); Non-African American GFR(CKD) >90 (>60 ml/min/1.73 sqM); Potassium 3.9 mmol/L (3.5-5.1); Sodium 138 mmol/L (137-145); Total Protein 6.2 g/dL (6.3-8.2)
[2021-05-10 08:38] LABS: Glucose 46 mg/dL (74-99)
[2021-05-10 08:42] LABS: Glucose,Whole Blood 54 mg/dL (75-99)
[2021-05-10 08:58] LABS: Glucose,Whole Blood 86 mg/dL (75-99)
[2021-05-10] MEDS: ENOXAPARIN 40 MG/0.4 ML SYRINGE SQ SCH (09:17)
[2021-05-10] MEDS: LOPERAMIDE 2 MG CAP PO PRN (09:22)
[2021-05-10 11:55] LABS: Glucose,Whole Blood 66 mg/dL (75-99)
[2021-05-10 12:05] VITALS: BMI 25.6
[2021-05-10 12:46] LABS: Glucose,Whole Blood 123 mg/dL (75-99)
--- NOTE | 2021-05-10 13:32 | P.PN ---
Subjective Progress Note Date: 05/10/21 Principal diagnosis: abdominal pain Patient is a 50-year-old female with a past medical history of pancreatitis who presented to the ER with complaints of abdominal pain. On arrival to the ER her vital signs were within normal limits. Laboratory analysis showed elevated AST, elevated ALT, lipase 16,271, amylase 999. She was found have an elevated albumin and total protein. CT abdomen and pelvis showed prior cholecystectomy with mildly dilated biliary tree. In the ER she received 1 mg of Dilaudid, 4 mg of morphine, and 2 L of normal saline. She was admitted for further monitoring. She was placed on IV fluids. These were decreased morning of 05/07 that she felt she couldn't tolerate a diet, however she was unable to tolerate clear liquids consistently. Overnight on 05/10 she developed profuse diarrhea which responded to Imodium. Patient seen and examined at bedside. Reports that overnight she had severe diarrhea and Having to run to the bathroom with loose watery stools. She reports that she has frequent diarrhea at home as well as abdominal cramping. We discussed concerns for chronic pancreatitis or pancreatic insufficiency. She continues to have diarrhea we will start pancreatic enzymes. We discussed that she should follow-up with Dr. Chowdary in the outpatient setting for further evaluation. General: non toxic, no distress, appears at stated age Derm: warm, dry Head: atraumatic, normocephalic, symmetric Eyes: EOMI, no lid lag, anicteric sclera Mouth: no lip lesion, mucus membranes dry Cardiovascular: S1S2 reg, no murmur, positive posterior tibial pulse bilateral, Lungs: Decreased bs bilateral, no rhonchi, no rales , no accessory muscle use Abdominal: soft, + tender to palpation right left lower quadrant, no guarding, no appreciable organomegaly Ext: no gross muscle atrophy, no edema, no contractures Neuro: CN II-XI grossly intact, no focal neuro deficits Psych: Alert, oriented, appropriate affect Assessment/Plan: Acute pancreatitis with history of prior pancreatitis Diarrhea Hypoglycemia likely related to above Transaminitis, improving Elevated serum protein level, resolved - Continue IV fluids - Advance to full liquid diet - Pain medications - Antiemetics - Repeat CMP and lipase in AM -If diarrhea continues we'll start pancreatic enzymes, check C. diff, and stool cultures. May be related to sugar alcohols -Outpatient follow-up with GI DVT prophylaxis: Lovenox Discussed with: Patient, nursing Anticipated discharge: in 1-[address]: home A total of 25 minutes was spent on the care of this complex patient more than 50% of the time was spent in counseling and care coordination. Objective - Vital Signs Vital signs: Vital Signs Temp 98.5 F 05/10/21 08:00 Pulse 59 L 05/10/21 08:00 Resp 16 05/10/21 08:00 BP 138/70 05/10/21 08:38 Pulse Ox 96 05/10/21 08:00 Intake & Output 05/09/21 05/10/21 05/10/21 18:59 06:59 18:59 Intake Total 1410 Balance 1410 Weight 63.503 kg Intake: Intake, IV Titration 750 Amount Lactated Ringers 1,000 ml 750 @ 75 mls/hr IV .[id number] BILL Rx#:[id number] Oral 660 Other: # Voids 2 # Bowel Movements 2 - Labs CBC & Chem 7: 05/09/21 06:48 05/10/21 04:13 Labs: Abnormal Lab Results - Last 24 Hours (Table) 05/10/21 05/10/21 05/10/21 Range/Units 04:13 08:41 11:53 BUN 6 L (7-17) mg/dL Glucose 46 L* (74-99) mg/dL POC Glucose (mg/dL) 54 L 66 L (75-99) mg/dL AST 99 H (14-36) U/L ALT 121 H (4-34) U/L Total Protein 6.2 L (6.3-8.2) g/dL 05/10/21 Range/Units 12:44 BUN (7-17) mg/dL Glucose (74-99) mg/dL POC Glucose (mg/dL) 123 H (75-99) mg/dL AST (14-36) U/L ALT (4-34) U/L Total Protein (6.3-8.2) g/dL
[2021-05-10] MEDS: HYDROcodone/APAP 5-325MG 1 EACH TAB PO PRN (14:50)
--- NOTE | 2021-05-10 15:32 | XR ---
EXAMINATION TYPE: XR abdomen 2V DATE OF EXAM: 05/10/2021 CLINICAL DATA: 50 year-old female with diarrhea, bowel obstruction, [facility] COMPARISON: CT 05/05/2021 FINDINGS: Lung bases are clear. No evidence for free intraperitoneal air. A couple prominent small bowel loops measuring up to 3.0 cm. No additional dilated small bowel. Scatt ered colonic air is present with some air-fluid levels in the right side of the colon. Small air-flui d levels within the small bowel as well. Cholecystectomy clips. Bilateral tubal ligation clips. Multiple surgical clips in the bilateral ingui nal regions. IMPRESSION: 1. Scattered air-fluid levels within a few small bowel loops and also within the right side of the co toro. Findings suggest liquid stool/diarrheal state. Correlate for an enteritis or generalized ileus. A couple loops of small bowel on the left are borderline distended up to 3.0 cm. This is a nonspecifi c bowel gas pattern but overall nonobstructive at this time. Consider short interval follow-up. 2. No significant stool. No free air.
[2021-05-10] MEDS: LIPASE 5,000/PROTEASE 17,000/AMYLASE 24,000 PO SCH (16:38)
[2021-05-10 16:44] LABS: Glucose,Whole Blood 73 mg/dL (75-99)
[2021-05-10] MEDS: DULoxetine HCL 30 MG CAPSULE.DR PO SCH (19:22)
[2021-05-11 00:43] LABS: Glucose,Whole Blood 96 mg/dL (75-99)
[2021-05-11] MEDS: LACTATED RINGERS 1,000 ML IV SCH (06:09)
[2021-05-11 06:49] LABS: MCH 31.1 pg (25.0-35.0); MCHC 33.4 g/dL (31.0-37.0); MCV 93.2 fL (80.0-100.0); Mean Platelet Volume 8.2; Platelet Count 215 k/uL (150-450); RBC 3.86 m/uL (3.80-5.40); RDW 11.8 % (11.5-15.5); WBC 4.2 k/uL (3.8-10.6)
[2021-05-11 06:53] LABS: Glucose,Whole Blood 82 mg/dL (75-99)
[2021-05-11 07:06] LABS: ALT 119 U/L (4-34); AST 92 U/L (14-36); African American GFR (CKD) >90 (>60 ml/min/1.73 sqM); Albumin 3.7 g/dL (3.5-5.0); Albumin/Globulin Ratio 1.4; Alkaline Phosphatase 81 U/L (38-126); Anion Gap 12 mmol/L; Blood Urea Nitrogen 5 mg/dL (7-17); Calcium 8.8 mg/dL (8.4-10.2); Carbon Dioxide 23 mmol/L (22-30); Chloride 101 mmol/L (98-107); Globulin 2.6 g/dL; Glucose 79 mg/dL (74-99); Non-African American GFR(CKD) >90 (>60 ml/min/1.73 sqM); Potassium 3.7 mmol/L (3.5-5.1); Sodium 136 mmol/L (137-145); Total Bilirubin 0.9 mg/dL (0.2-1.3); Total Protein 6.3 g/dL (6.3-8.2)
[2021-05-11 07:23] VITALS: RESP 18
[2021-05-11] MEDS: LIPASE 5,000/PROTEASE 17,000/AMYLASE 24,000 PO SCH ×2 (09:32→12:05)
[2021-05-11] MEDS: ENOXAPARIN 40 MG/0.4 ML SYRINGE SQ SCH (09:32)
[2021-05-11] MEDS: HYDROcodone/APAP 5-325MG 1 EACH TAB PO PRN (14:07)
[2021-05-11] MEDS: ONDANSETRON 4 MG/2 ML VIAL IVP PRN (14:07)
[2021-05-11 14:14] VITALS: BP 136/78; PULSE 57; TEMP 97.8
--- NOTE | 2021-05-11 17:49 | P.DS ---
Providers Date of admission: 05/05/21 21:05 Expected date of discharge: 05/11/21 Attending physician: Felecia Carmona DO Primary care physician: Physician Nonstaff Hospital Course: Discharge Diagnosis: Acute pancreatitis with history of prior pancreatitis Pancreatic insufficiency Hypoglycemia likely related to above Transaminitis, improving Elevated serum protein level, resolved Hospital Course: Patient is a 50-year-old female with a past medical history of pancreatitis who presented to the ER with complaints of abdominal pain. On arrival to the ER her vital signs were within normal limits. Laboratory analysis showed elevated AST, elevated ALT, lipase 16,271, amylase 999. She was found have an elevated albumin and total protein. CT abdomen and pelvis showed prior cholecystectomy with mildly dilated biliary tree. In the ER she received 1 mg of Dilaudid, 4 mg of morphine, and 2 L of normal saline. She was admitted for further monitoring. She was placed on IV fluids. These were decreased morning of 05/07 that she felt she couldn't tolerate a diet, however she was unable to tolerate clear liquids consistently. Overnight on 05/10 she developed profuse diarrhea which responded to Imodium. When we attempted to allow her to eat again her diarrhea returned. She was started on pancreatic enzymes and her diarrhea resolved. She does report that she has had intermittent diarrhea concerns or pancreatic insufficiency for quite some time. She was determined stable for discharge home. She will continue on pancreatic enzymes with meals. She'll follow up with Dr. Davis for shannan lamb of pancreatic insufficiency. Follow-up with PCP. Patient seen and examined at bedside. Feeling better today, pancreatic enzymes helped to resolve diarrhea, nausea better, abdominal fullness is better, pain has subsided. Vital signs reviewed and stable. General: non toxic, no distress, appears at stated age Derm: warm, dry Head: atraumatic, normocephalic, symmetric Eyes: EOMI, no lid lag, anicteric sclera Mouth: no lip lesion, mucus membranes moist Cardiovascular: S1S2 reg, no murmur, positive posterior tibial pulse bilateral, Lungs: CTA bilateral, no rhonchi, no rales , no accessory muscle use Abdominal: soft, tender to palpation periepigastric, no guarding, no appreciable organomegaly Ext: no gross muscle atrophy, no edema, no contractures Neuro: CN II-XI grossly intact, no focal neuro deficits Psych: Alert, oriented, appropriate affect A total of 37 minutes of time were spent preparing this complex discharge summary . Patient Condition at Discharge: Stable Plan - Discharge Summary Discharge Rx Participant: No New Discharge Prescriptions: New HYDROcodone/APAP 5-325MG [Hudson 5-325] 1 each PO Q6HR PRN #15 tab PRN Reason: Pain Ondansetron [Zofran] 4 mg PO Q8HR PRN #30 tab PRN Reason: Nausea Lipase/Protease/Amylase [Zenpep Dr 5,000 Unit Capsule] 1 each PO TID-W/MEALS #90 capsule Continue DULoxetine HCL [Cymbalta] 30 mg PO HS Discharge Medication List DULoxetine HCL [Cymbalta] 30 mg PO HS 05/05/21 [History] HYDROcodone/APAP 5-325MG [Hudson 5-325] 1 each PO Q6HR PRN #15 tab 05/11/21 [Rx] Lipase/Protease/Amylase [Zenpep Dr 5,000 Unit Capsule] 1 each PO TID-W/MEALS #90 capsule 05/11/21 [Rx] Ondansetron [Zofran] 4 mg PO Q8HR PRN #30 tab 05/11/21 [Rx] Follow up Appointment(s)/Referral(s): Mary Salmon DO [REFERRING] - 1 Week Gabriela Davis MD [STAFF PHYSICIAN] - 4 Weeks (Office not answering Please call to schedule appointment) Nonstaff,Physician [Primary Care Provider] - 1-2 days Patient Instructions/Handouts: Pancreatitis (DC), Low Fat Diet (DC), Full Liquid Diet (DC) Activity/Diet/Wound Care/Special Instructions: Activity: as tolerated Diet: full liquid for 2-3 days than then bland diet Medications in pharmacy. Discount card for Zofran. Total $32 Discharge Disposition: HOME SELF-CARE
== END 2021-05-11 17:31 | disposition home or self-care (01) | DRG 440 ==
LOC: EC 19:52 → 4SSUR 21:05
PROVIDERS: ADMIT Internal Medicine; ATTEND Internal Medicine
DX: K85.90 Acute pancreatitis without necrosis or infection, unspecified (principal); E16.2 Hypoglycemia, unspecified; Z87.891 Personal history of nicotine dependence; Z90.49 Acquired absence of other specified parts of digestive tract; R74.01 Elevation of levels of liver transaminase levels; Z20.822 Contact with and (suspected) exposure to COVID-19; R19.7 Diarrhea, unspecified
CPT/HCPCS: 36415; 74019; 74177; 80048; 80053; 81003; 82150; 83690; 83735; 84478; 84484; 85025; 85027; 87635; 93005; 96374; 96375; 99285

== ENCOUNTER → 2021-06-13 | Outpatient (CLI) | payer BC ==
--- NOTE | 2021-06-13 09:53 | MR ---
EXAMINATION TYPE: MR MRCP DATE OF EXAM: 06/13/2021 COMPARISON: CT abdomen and pelvis May 05, 2021 HISTORY: Acute pancreatitis, Hx of gallbladder removal Standard multiplanar, multisequence MRI departmental protocol Multiplanar, multisequence images of the abdomen were acquired without contrast. Diffusion weighted i maging was performed. Thin and thick slice MRCP imaging performed on MRI scanner. FINDINGS: Exam slightly suboptimal due to breathing motion near The diaphragm. Liver/gallbladder/pancreas/biliary system: Gallbladder surgically absent. Common bile duct is mildly dilated up to 13 mm on T2 coronal weighted images measuring slightly smaller on MRCP images. No intra luminal gallstones are present. There is tapering towards the ampulla. Pancreatic duct is visualized without suspicious dilatation. No suspicious intrahepatic biliary dilatation. Liver is normal in size without concerning solid or cystic mass. Pancreas is normal in size without concerning solid or cyst ic mass. Other: Lung bases are grossly clear. The spleen and both adrenal glands appear within normal limits. No concerning renal mass or hydronephrosis. No suspicious bowel dilatation. Patient has little intra- abdominal fat. IMPRESSION: Mild extrahepatic biliary dilatation after cholecystectomy. No obstructing CBD stone. No significant intrahepatic biliary or pancreatic ductal dilatation.
== END | disposition home or self-care (01) ==
LOC: RADMRIMAIN 07:33
PROVIDERS: ATTEND Internal Medicine Gastroenterology
DX: K83.8 Other specified diseases of biliary tract (principal); Z90.49 Acquired absence of other specified parts of digestive tract
CPT/HCPCS: 74181

== ENCOUNTER 2021-09-28 19:54 | Emergency (ER) | payer BC ==
[2021-09-28 20:26] VITALS: BP 130/79; PULSE 111; RESP 16; TEMP 98.3
[2021-09-29 00:10] LABS: Appearance,Urine Clear (Clear); Bilirubin,Urine Negative (Negative); Blood,Urine Negative (Negative); Color,Urine Colorless; Glucose,Urine (UA) Negative (Negative); Ketones,Urine Negative (Negative); Leukocyte Esterase,Urine Negative (Negative); Nitrite,Urine Negative (Negative); PH, Urine 5.5 (5.0-8.0); Protein,Urine Negative (Negative); Specific Gravity,Urine 1.004 (1.001-1.035); Urobilinogen,Urine <2.0 mg/dL (<2.0)
== END 2021-09-28 23:33 | disposition left against medical advice (07) ==
LOC: EC 19:54
DX: Z53.21 Procedure and treatment not carried out due to patient leaving prior to being seen by health care provider (principal); R10.9 Unspecified abdominal pain
CPT/HCPCS: 81003; 81025

== ENCOUNTER 2022-10-15 04:27 | Inpatient (IN) | payer BC ==
[2022-10-15] MEDS ORDERED: SODIUM CHLORIDE 0.9% 500 ML 500 ML IV STA ×2 (05:05→07:18)
[2022-10-15] MEDS ORDERED: MORPHINE SULFATE 4 MG/ML SYRINGE IV STA ×2 (05:09→07:18)
[2022-10-15] MEDS ORDERED: SODIUM CHLORIDE 0.9% 1,000 ML IV ONE (05:09)
[2022-10-15] MEDS ORDERED: ONDANSETRON 4 MG/2 ML VIAL IVP STA ×2 (05:09→07:18)
[2022-10-15 05:23] LABS: Basophils % (A) 0 %; Eosinophils # (A) 0.1 k/uL (0-0.7); Eosinophils % (A) 1 %; HCT 40.5 % (34.0-46.0); HGB 13.6 gm/dL (11.4-16.0); Lymphocytes # (A) 0.5 k/uL (1.0-4.8); Lymphocytes % (A) 7 %; MCH 30.5 pg (25.0-35.0); MCHC 33.7 g/dL (31.0-37.0); MCV 90.6 fL (80.0-100.0); Mean Platelet Volume 8.6; Monocytes # (A) 0.2 k/uL (0-1.0); Monocytes % (A) 3 %; Neutrophils # (A) 6.4 k/uL (1.3-7.7); Neutrophils % (A) 89 %; Platelet Count 131 k/uL (150-450); RBC 4.47 m/uL (3.80-5.40); RDW 13.2 % (11.5-15.5); WBC 7.3 k/uL (3.8-10.6)
[2022-10-15 05:27] LABS: ALT 241 U/L (4-34); AST 672 U/L (14-36); African American GFR (CKD) >90 (>60 ml/min/1.73 sqM); Albumin 4.2 g/dL (3.5-5.0); Alkaline Phosphatase 217 U/L (38-126); Amylase 219 U/L (30-110); Anion Gap 7 mmol/L; Blood Urea Nitrogen 23 mg/dL (7-17); Calcium 8.3 mg/dL (8.4-10.2); Carbon Dioxide 30 mmol/L (22-30); Chloride 99 mmol/L (98-107); Glucose 121 mg/dL (74-99); Non-African American GFR(CKD) 88 (>60 ml/min/1.73 sqM); Potassium 3.9 mmol/L (3.5-5.1); Sodium 136 mmol/L (137-145); Total Bilirubin 1.6 mg/dL (0.2-1.3); Total Protein 6.7 g/dL (6.3-8.2)
[2022-10-15 05:33] LABS: Lipase 2633 U/L (23-300)
[2022-10-15 06:18] LABS: Appearance,Urine Clear (Clear); Bilirubin,Urine Negative (Negative); Blood,Urine Negative (Negative); Color,Urine Yellow; Glucose,Urine (UA) Negative (Negative); Ketones,Urine Negative (Negative); Leukocyte Esterase,Urine Negative (Negative); Nitrite,Urine Negative (Negative); PH, Urine 6.5 (5.0-8.0); Protein,Urine Negative (Negative); Specific Gravity,Urine 1.015 (1.001-1.035); Urobilinogen,Urine <2.0 mg/dL (<2.0)
--- NOTE | 2022-10-15 07:21 | ED ---
Nausea/Vomiting/Diarrhea HPI - General Source: patient, family Mode of arrival: ambulatory Limitations: no limitations - History of Present Illness MD complaint: nausea, vomiting, abdominal pain Onset/Timin -: hour(s) Description of Vomiting: food contents Associated Abdominal Pain: Yes Location: RUQ, epigastric Severity: severe Quality: aching Consistency: constant Improves with: none Worsens with: none Associated Symptoms: nausea/vomiting <Jonathan Sahu - Last Filed: 10/15/22 07:18> <Sim Amador - Last Filed: 10/18/22 08:12> - General Chief complaint: Nausea/Vomiting/Diarrhea Stated complaint: V/N, Pancreatitis Time Seen by Provider: 10/15/22 05:04 - History of Present Illness Initial comments: This patient is a 51-year-old woman who presents to have evaluation of upper abdominal pain, nausea and vomiting. The patient states that she had just returned from [facility] arriving back at home at approximately 1 AM. She has now had about 2 hours of upper abdominal pain, nausea and vomiting. She describes the pain as aching, moderate to severe, without worsening or relieving factors. She has had 5 or more episodes of vomiting. She did not see any blood or coffee-ground material. No change in bowel movements or urination. Patient states she has previously had pancreatitis due to a gallstone. She did have her cholecystectomy 15 years ago. (Jonathan Sahu) - Related Data Home Medications Medication Instructions Recorded Confirmed Cholecalciferol [Vitamin D3 (25 25 mcg PO DAILY 10/15/22 10/15/22 Mcg = 1000 Iu)] Cyanocobalamin [Vitamin B-12] 500 mcg PO DAILY 10/15/22 10/15/22 Escitalopram [Lexapro] 5 mg PO DAILY 10/15/22 10/17/22 Estradiol/Norethindrone Acet 1 tab PO DAILY 10/15/22 10/15/22 0.5-0.1mg Tab Multivitamins, Thera [Multivitamin 1 tab PO DAILY 10/15/22 10/15/22 (formulary)] Kamiah-3/Dha/Epa/Fish Oil [Fish Oil 1 cap PO DAILY 10/15/22 10/15/22 1,000 mg Softgel] Pregabalin [Lyrica] 200 mg PO TID 10/15/22 10/15/22 Rosuvastatin [Crestor] 20 mg PO DAILY 10/15/22 10/15/22 Allergies Allergy/AdvReac Type Severity Reaction Status Date / Time No Known Allergies Allergy Verified 10/15/22 12:20 Review of Systems ROS Other: All systems not noted in ROS Statement are negative. Constitutional: Denies: fever, chills Respiratory: Denies: cough, dyspnea Cardiovascular: Denies: chest pain, palpitations, edema Gastrointestinal: Reports: abdominal pain, nausea, vomiting. Denies: diarrhea, constipation, hematemesis, melena, hematochezia Genitourinary: Denies: dysuria, hematuria Musculoskeletal: Denies: back pain Skin: Denies: rash Neurological: Denies: headache, weakness <AdelinaJonathan - Last Filed: 10/15/22 07:18> ROS Other: All systems not noted in ROS Statement are negative. <Sim Amador - Last Filed: 10/18/22 08:12> ROS Statement: Those systems with pertinent positive or pertinent negative responses have been documented in the HPI. Past Medical History Additional Past Medical History / Comment(s): pancreatitis, trigeminal neuralgia History of Any Multi-Drug Resistant Organisms: None Reported Past Surgical History: Appendectomy, Cholecystectomy, Tonsillectomy Additional Past Surgical History / Comment(s): bunionectomy Past Psychological History: No Psychological Hx Reported Smoking Status: Former smoker Past Alcohol Use History: Occasional Past Drug Use History: None Reported <AdelinaJonathan - Last Filed: 10/15/22 07:18> General Exam Limitations: no limitations General appearance: alert, in no apparent distress Head exam: Present: atraumatic, normocephalic Eye exam: Present: normal appearance. Absent: scleral icterus, conjunctival injection ENT exam: Present: normal oropharynx Neck exam: Present: normal inspection Respiratory exam: Present: normal lung sounds bilaterally. Absent: respiratory distress, wheezes, rales, rhonchi, stridor Cardiovascular Exam: Present: regular rate, normal rhythm, normal heart sounds. Absent: systolic murmur, diastolic murmur, rubs, gallop GI/Abdominal exam: Present: soft, tenderness (Epigastric and right upper quadrant). Absent: distended, guarding, rebound, rigid, mass, pulsatile mass, hernia Extremities exam: Present: normal inspection, normal capillary refill. Absent: pedal edema, calf tenderness Back exam: Present: normal inspection. Absent: CVA tenderness (R), CVA tenderness (L) Neurological exam: Present: alert Skin exam: Present: warm, dry, intact, normal color. Absent: rash <ShayyJonathan hogan - Last Filed: 10/15/22 07:18> Course Vital Signs 10/15/22 10/15/22 10/15/22 04:39 06:32 07:17 Temperature 98.7 F Pulse Rate 83 96 89 Respiratory 18 16 16 Rate Blood Pressure 106/63 98/68 107/63 O2 Sat by Pulse 97 97 95 Oximetry 10/15/22 10/15/22 10/15/22 07:56 09:02 10:14 Temperature Pulse Rate 76 76 Respiratory 16 16 Rate Blood Pressure 103/54 93/55 96/58 O2 Sat by Pulse 95 97 Oximetry Medical Decision Making - Lab Data Result diagrams: 10/15/22 05:07 10/15/22 05:07 <AdelinaJonathan - Last Filed: 10/15/22 07:18> - Lab Data Result diagrams: 10/18/22 06:05 10/18/22 06:05 <Sim Amador - Last Filed: 10/18/22 08:12> - Medical Decision Making Was pt. sent in by a medical professional or institution ([facility], [employer], urgent care, hospital, or prison...) When possible be specific @ -[No] Did you speak to anyone other than the patient for history (EMS, parent, family, police, friend...)? What history was obtained from this source @ -[No] Did you review nursing and triage notes (agree or disagree)? Why? @ -[I reviewed and agree with nursing and triage notes] Were old charts reviewed (outside hosp., previous admission, EMS record, old EKG, old radiological studies, urgent care reports/EKG's, prison records)? Report findings @ -[No old charts were reviewed] Differential Diagnosis (chest pain, altered mental status, abdominal pain women, abdominal pain men, vaginal bleeding, weakness, fever, dyspnea, syncope, headache, dizziness, GI bleed, back pain, seizure, CVA, palpatations, mental health, musculoskeletal)? @ Differential Abdominal Pain Women: Appendicitis, Cholecystitis, diverticulosis, ischemic bowel, pancreatitis, hepatitis, UTI, gastroenteritis, AAA, incarcerated hernia, bowel obstruction, constipation, inflammatory bowel, hepatitis, peptic ulcer disease, splenic infarction, perforated viscus, this is not meant to be an all-inclusive list EKG interpreted by me (3pts min.). @ -[As above] X-rays interpreted by me (1pt min.). @ -[None done] CT interpreted by me (1pt min.). @ -[None done] U/S interpreted by me (1pt. min.). @ -[None done] What testing was considered but not performed or refused? (CT, X-rays, U/S, labs)? Why? @ -[None] What meds were considered but not given or refused? Why? @ -[None] Did you discuss the management of the patient with other professionals (professionals i.e. , PA, [employer], lab, RT, psych nurse, social service director, freight car cleaner, teacher, court security officer, pillowcase maker)? Give summary @ -[Case discussed with Day antonio for [facility]. Was smoking cessation discussed for >3mins.? @ -[No] Was critical care preformed (if so, how long)? @ -[No] Were there social determinants of health that impacted care today? How? (Homelessness, low income, unemployed, alcoholism, drug addiction, transportation, low edu. Level, literacy, decrease access to med. care, fdc, rehab)? @ -[No] Was there de-escalation of care discussed even if they declined (Discuss DNR or withdrawal of care, Hospice)? DNR status @ -[No] What co-morbidities impacted this encounter? (DM, HTN, Smoking, COPD, CAD, Cancer, CVA, ARF, Chemo, Hep., AIDS, mental health diagnosis, sleep apnea, morbid obesity)? @ -[None] Was patient admitted / discharged? Hospital course, mention meds given and route, prescriptions, significant lab abnormalities, going to OR and other pertinent info. @ 51-year-old female whose care was signed out awaiting ultrasound workup for nausea vomiting diarrhea with elevated AST, ALT, alkaline phosphatase and lipase. Patient is status post cholecystectomy approximately 15 years ago. Ultrasound is negative for Beal sign, do show dilated common bile duct without an obstructing stone. Patient does admit to moderate to heavy alcohol consumption over the past several days. I suspect this is an alcohol related pancreatitis. I did initially plan to transfer this patient for GI consultation however Ilene Rivera is not currently excepting transfers. The admitting team, [facility] and she is willing to admit this patient awaiting repeat lab testing and further evaluation and need for GI consultation versus supportive care. Undiagnosed new problem with uncertain prognosis? @ -[No] Drug Therapy requiring intensive monitoring for toxicity (Heparin, Nitro, Insulin, Cardizem)? @ -[No] Were any procedures done? @ -[No] Diagnosis/symptom? @ -Pancreatitis, transaminitis Acute, or Chronic, or Acute on Chronic? @ -Acute Uncomplicated (without systemic symptoms) or Complicated (systemic symptoms)? @ -Complicated Side effects of treatment? @ -[No] Exacerbation, Progression, or Severe Exacerbation? @ -[No] Poses a threat to life or bodily function? How? (Chest pain, USA, GA, pneumonia, PE, COPD, DKA, ARF, appy, cholecystitis, CVA, Diverticulitis, Homicidal, Suicidal, threat to staff... and all critical care pts) @ -[Moderate risk] (Sim Amador) - Lab Data Lab Results 10/15/22 10/15/22 10/15/22 Range/Units 05:07 05:07 05:32 WBC 7.3 (3.8-10.6) k/uL RBC 4.47 (3.80-5.40) m/uL Hgb 13.6 (11.4-16.0) gm/dL Hct 40.5 (34.0-46.0) % MCV 90.6 (80.0-100.0) fL MCH 30.5 (25.0-35.0) pg MCHC 33.7 (31.0-37.0) g/dL RDW 13.2 (11.5-15.5) % Plt Count 131 L (150-450) k/uL MPV 8.6 Neutrophils % 89 % Lymphocytes % 7 % Monocytes % 3 % Eosinophils % 1 % Basophils % 0 % Neutrophils # 6.4 (1.3-7.7) k/uL Lymphocytes # 0.5 L (1.0-4.8) k/uL Monocytes # 0.2 (0-1.0) k/uL Eosinophils # 0.1 (0-0.7) k/uL Basophils # 0.0 (0-0.2) k/uL Sodium 136 L (137-145) mmol/L Potassium 3.9 (3.5-5.1) mmol/L Chloride 99 (98-107) mmol/L Carbon Dioxide 30 (22-30) mmol/L Anion Gap 7 mmol/L BUN 23 H (7-17) mg/dL Creatinine 0.79 (0.52-1.04) mg/dL Est GFR (CKD-EPI)AfAm >90 (>60 ml/min/1.73 sqM) Est GFR (CKD-EPI)NonAf 88 (>60 ml/min/1.73 sqM) Glucose 121 H (74-99) mg/dL Calcium 8.3 L (8.4-10.2) mg/dL Total Bilirubin 1.6 H (0.2-1.3) mg/dL AST 672 H (14-36) U/L ALT 241 H (4-34) U/L Alkaline Phosphatase 217 H (38-126) U/L Total Protein 6.7 (6.3-8.2) g/dL Albumin 4.2 (3.5-5.0) g/dL Amylase 219 H (30-110) U/L Lipase 2633 H (23-300) U/L Urine Color Yellow Urine Appearance Clear (Clear) Urine pH 6.5 (5.0-8.0) Ur Specific [place] 1.015 (1.001-1.035) Urine Protein Negative (Negative) Urine Glucose (UA) Negative (Negative) Urine Ketones Negative (Negative) Urine Blood Negative (Negative) Urine Nitrite Negative (Negative) Urine Bilirubin Negative (Negative) Urine Urobilinogen <2.0 (<2.0) mg/dL Ur Leukocyte Esterase Negative (Negative) Disposition <Jonathan Sahu - Last Filed: 10/15/22 07:18> Is patient prescribed a controlled substance at d/c from ED?: No Time of Disposition: 08:36 <Sim Amador - Last Filed: 10/18/22 08:12> Clinical Impression: Pancreatitis, Dehydration, Transaminitis Disposition: ADMITTED IP TO THIS HOSP Condition: Stable
--- NOTE | 2022-10-15 08:00 | US ---
EXAMINATION TYPE: US abdomen limited DATE OF EXAM: 10/15/2022 COMPARISON: MR 06/13/21, CT 05/05/21 CLINICAL INDICATION: Female, 51 years old with history of attention RUQ; RUQ. Hx cholecystectomy, la endectomy, pancreatitis. TECHNIQUE: Multiple sonographic images of the right upper quadrant are obtained. FINDINGS: EXAM MEASUREMENTS: Liver Length: 15.3 cm Gallbladder Wall: Surgically absent CBD: 1.6 cm Right Kidney: 10.2 x 5.5 x 4.8 cm COMMODITIES MANAGER NOTES: Exam is limited due to bowel gas. Pancreas: Duct measures 0.17 cm within body of pancreas. Slightly limited visibility of pancreatic t ail. Liver: Appears wnl Gallbladder: Surgically absent. Evidence for sonographic Beal's sign: No CBD: Dilated measuring 1.6 cm in greatest visualized dimension. No obvious stone seen, although por tions were limited in visibility due to gas. Right Kidney: No hydronephrosis or masses seen IMPRESSION: Biliary ductal dilatation in a patient that is status post cholecystectomy.
[2022-10-15] MEDS ORDERED: NALOXONE 0.4 MG/ML 1 ML VIAL IV PRN (08:34)
[2022-10-15] MEDS: SODIUM CHLORIDE 0.9% 1,000 ML IV SCH ×2 (08:58→21:02)
[2022-10-15] MEDS: PANTOPRAZOLE 40 MG/10 ML VIAL IV SCH (09:00)
[2022-10-15] MEDS: HYDROmorphone 0.5 MG/0.5 ML SYRINGE IVP PRN ×3 (10:55→19:41)
[2022-10-15 10:57] LABS: ALT 620 U/L (4-34); African American GFR (CKD) >90 (>60 ml/min/1.73 sqM); Albumin 3.4 g/dL (3.5-5.0); Alkaline Phosphatase 219 U/L (38-126); Anion Gap 4 mmol/L; Blood Urea Nitrogen 17 mg/dL (7-17); Calcium 7.2 mg/dL (8.4-10.2); Carbon Dioxide 28 mmol/L (22-30); Chloride 104 mmol/L (98-107); Glucose 117 mg/dL (74-99); Lipase 693 U/L (23-300); Non-African American GFR(CKD) >90 (>60 ml/min/1.73 sqM); Potassium 3.9 mmol/L (3.5-5.1); Sodium 136 mmol/L (137-145); Total Bilirubin 1.9 mg/dL (0.2-1.3); Total Protein 5.8 g/dL (6.3-8.2)
[2022-10-15 11:08] LABS: AST 1459 U/L (14-36)
--- NOTE | 2022-10-15 13:34 | P.GSCN ---
History of Present Illness Consult date: 10/15/22 History of present illness: Patient's pre-existing history of pancreatitis with dilated common bile duct 2 years ago. She was hospitalized with worsening abdominal pain then. She been seen by GI. MRCP was obtained at that time. Patient now comes in with a similar event however less painful. She just came back from [facility] with the last 2-3 days. Information records obtained by family at bedside. Patient is groggy at the time of my assessment. At this time, bowel rest for pancreatitis. Recommend GI assessment Past Medical History Additional Past Medical History / Comment(s): pancreatitis, trigeminal neuralgia History of Any Multi-Drug Resistant Organisms: None Reported Past Surgical History: Appendectomy, Cholecystectomy, Tonsillectomy Additional Past Surgical History / Comment(s): bunionectomy Past Anesthesia/Blood Transfusion Reactions: No Reported Reaction Smoking Status: Former smoker Medications and Allergies Home Medications Medication Instructions Recorded Confirmed Type Cholecalciferol [Vitamin D3 (25 25 mcg PO DAILY 10/15/22 10/15/22 History Mcg = 1000 Iu)] Cyanocobalamin [Vitamin B-12] 500 mcg PO DAILY 10/15/22 10/15/22 History Escitalopram [Lexapro] 10 mg PO DAILY 10/15/22 10/15/22 History Estradiol/Norethindrone Acet 1 tab PO DAILY 10/15/22 10/15/22 History 0.5-0.1mg Tab Multivitamins, Thera [Multivitamin 1 tab PO DAILY 10/15/22 10/15/22 History (formulary)] [place]-3/Dha/Epa/Fish Oil [Fish Oil 1 cap PO DAILY 10/15/22 10/15/22 History 1,000 mg Softgel] Pregabalin [Lyrica] 200 mg PO TID 10/15/22 10/15/22 History Rosuvastatin [Crestor] 20 mg PO DAILY 10/15/22 10/15/22 History Allergies Allergy/AdvReac Type Severity Reaction Status Date / Time No Known Allergies Allergy Verified 10/15/22 12:20 Surgical - Exam Vital Signs Temp Pulse Resp BP Pulse Ox 98.7 F 83 18 106/63 97 10/15/22 04:39 10/15/22 04:39 10/15/22 04:39 10/15/22 04:39 10/15/22 04:39 Results - Labs 10/15/22 05:07 10/15/22 09:55 Abnormal Lab Results - Last 24 Hours (Table) 10/15/22 10/15/22 10/15/22 Range/Units 05:07 05:07 09:55 Plt Count 131 L (150-450) k/uL Lymphocytes # 0.5 L (1.0-4.8) k/uL Sodium 136 L 136 L (137-145) mmol/L BUN 23 H (7-17) mg/dL Glucose 121 H 117 H (74-99) mg/dL Calcium 8.3 L 7.2 L (8.4-10.2) mg/dL Total Bilirubin 1.6 H 1.9 H (0.2-1.3) mg/dL AST 672 H 1459 H (14-36) U/L ALT 241 H 620 H (4-34) U/L Alkaline Phosphatase 217 H 219 H (38-126) U/L Total Protein 5.8 L (6.3-8.2) g/dL Albumin 3.4 L (3.5-5.0) g/dL Amylase 219 H (30-110) U/L Lipase 2633 H 693 H (23-300) U/L Diabetes panel 10/15/22 10/15/22 Range/Units 05:07 09:55 Sodium 136 L 136 L (137-145) mmol/L Potassium 3.9 3.9 (3.5-5.1) mmol/L Chloride 99 104 (98-107) mmol/L Carbon Dioxide 30 28 (22-30) mmol/L BUN 23 H 17 (7-17) mg/dL Creatinine 0.79 0.65 (0.52-1.04) mg/dL Glucose 121 H 117 H (74-99) mg/dL Calcium 8.3 L 7.2 L (8.4-10.2) mg/dL AST 672 H 1459 H (14-36) U/L ALT 241 H 620 H (4-34) U/L Alkaline Phosphatase 217 H 219 H (38-126) U/L Total Protein 6.7 5.8 L (6.3-8.2) g/dL Albumin 4.2 3.4 L (3.5-5.0) g/dL Calcium panel 10/15/22 10/15/22 Range/Units 05:07 09:55 Calcium 8.3 L 7.2 L (8.4-10.2) mg/dL Albumin 4.2 3.4 L (3.5-5.0) g/dL Pituitary panel 10/15/22 10/15/22 Range/Units 05:07 09:55 Sodium 136 L 136 L (137-145) mmol/L Potassium 3.9 3.9 (3.5-5.1) mmol/L Chloride 99 104 (98-107) mmol/L Carbon Dioxide 30 28 (22-30) mmol/L BUN 23 H 17 (7-17) mg/dL Creatinine 0.79 0.65 (0.52-1.04) mg/dL Glucose 121 H 117 H (74-99) mg/dL Calcium 8.3 L 7.2 L (8.4-10.2) mg/dL Adrenal panel 10/15/22 10/15/22 Range/Units 05:07 09:55 Sodium 136 L 136 L (137-145) mmol/L Potassium 3.9 3.9 (3.5-5.1) mmol/L Chloride 99 104 (98-107) mmol/L Carbon Dioxide 30 28 (22-30) mmol/L BUN 23 H 17 (7-17) mg/dL Creatinine 0.79 0.65 (0.52-1.04) mg/dL Glucose 121 H 117 H (74-99) mg/dL Calcium 8.3 L 7.2 L (8.4-10.2) mg/dL Total Bilirubin 1.6 H 1.9 H (0.2-1.3) mg/dL AST 672 H 1459 H (14-36) U/L ALT 241 H 620 H (4-34) U/L Alkaline Phosphatase 217 H 219 H (38-126) U/L Total Protein 6.7 5.8 L (6.3-8.2) g/dL Albumin 4.2 3.4 L (3.5-5.0) g/dL
--- NOTE | 2022-10-15 13:43 | P.HPIM ---
History of Present Illness 51-year-old female came in with comments of epigastric abdominal pain nausea vomiting severe sharp found to have pancreatitis. Patient recently returned from the [place] where she did drink more than usual. Patient had a cholecystectomy in the past on some of the abdomen did show dilated the common bile duct along with elevated liver enzymes AST 1459 and ALT 620 consistent with alcoholic hepatitis. Patient is on IV fluids at this time. REVIEW OF SYSTEMS: CONSTITUTIONAL: No fever, no malaise, no fatigue. HEENT: No recent visual problems or hearing problems. Denied any sore throat. CARDIOVASCULAR: No chest pain, orthopnea, PND, no palpitations, no syncope. PULMONARY: No shortness of breath, no cough, no hemoptysis. GASTROINTESTINAL: As mentioned in HPI NEUROLOGICAL: No headaches, no weakness, no numbness. HEMATOLOGICAL: Denies any bleeding or petechiae. GENITOURINARY: Denies any burning micturition, frequency, or urgency. MUSCULOSKELETAL/RHEUMATOLOGICAL: Denies any joint pain, swelling, or any muscle pain. ENDOCRINE: Denies any polyuria or polydipsia. The rest of the 14-point review of systems is negative. PHYSICAL EXAMINATION: GENERAL: The patient is patient is bit drowsy and sleepy and not in any acute distress. Well developed, well nourished. HEENT: Pupils are round and equally reacting to light. EOMI. No scleral icterus. No conjunctival pallor. Normocephalic, atraumatic. No pharyngeal erythema. No thyromegaly. CARDIOVASCULAR: S1 and S2 present. No murmurs, rubs, or gallops. PULMONARY: Chest is clear to auscultation, no wheezing or crackles. ABDOMEN: Soft, epigastric abdominal tenderness nondistended, normoactive bowel sounds. No palpable organomegaly. MUSCULOSKELETAL: No joint swelling or deformity. EXTREMITIES: No cyanosis, clubbing, or pedal edema. NEUROLOGICAL: Gross neurological examination did not reveal any focal deficits. SKIN: No rashes. Assessment and plan -Alcoholic Pancreatitis improving symptoms patient will be started on clear liquid diet continue with pain medications IV fluids Protonix -Acute alcoholic hepatitis: supportive care, monitor liver enzymes -History of trigeminal neuralgia presently not having any pain or headache. DVT prophylaxis: Lovenox GI prophylaxis with Protonix Past Medical History Additional Past Medical History / Comment(s): pancreatitis, trigeminal neuralgia History of Any Multi-Drug Resistant Organisms: None Reported Past Surgical History: Appendectomy, Cholecystectomy, Tonsillectomy Additional Past Surgical History / Comment(s): bunionectomy Past Anesthesia/Blood Transfusion Reactions: No Reported Reaction Smoking Status: Former smoker Medications and Allergies Home Medications Medication Instructions Recorded Confirmed Type Cholecalciferol [Vitamin D3 (25 25 mcg PO DAILY 10/15/22 10/15/22 History Mcg = 1000 Iu)] Cyanocobalamin [Vitamin B-12] 500 mcg PO DAILY 10/15/22 10/15/22 History Escitalopram [Lexapro] 10 mg PO DAILY 10/15/22 10/15/22 History Estradiol/Norethindrone Acet 1 tab PO DAILY 10/15/22 10/15/22 History 0.5-0.1mg Tab Multivitamins, Thera [Multivitamin 1 tab PO DAILY 10/15/22 10/15/22 History (formulary)] [place]-3/Dha/Epa/Fish Oil [Fish Oil 1 cap PO DAILY 10/15/22 10/15/22 History 1,000 mg Softgel] Pregabalin [Lyrica] 200 mg PO TID 10/15/22 10/15/22 History Rosuvastatin [Crestor] 20 mg PO DAILY 10/15/22 10/15/22 History Allergies Allergy/AdvReac Type Severity Reaction Status Date / Time No Known Allergies Allergy Verified 10/15/22 12:20 Physical Exam Vitals: Vital Signs Temp Pulse Pulse Resp BP BP Pulse Ox 10/15/22 10:52 97.6 F 78 111/71 92 L 10/15/22 10:14 76 16 96/58 97 10/15/22 09:02 76 16 93/55 95 10/15/22 07:56 103/54 10/15/22 07:17 89 16 107/63 95 10/15/22 06:32 96 16 98/68 97 10/15/22 04:39 98.7 F 83 18 106/63 97 Intake and Output 10/14/22 10/15/22 10/15/22 22:59 06:59 14:59 Other: Weight 65.771 kg 65.771 kg Results CBC & Chem 7: 10/15/22 05:07 10/15/22 09:55 Labs: Abnormal Lab Results - Last 24 Hours (Table) 10/15/22 10/15/22 10/15/22 Range/Units 05:07 05:07 09:55 Plt Count 131 L (150-450) k/uL Lymphocytes # 0.5 L (1.0-4.8) k/uL Sodium 136 L 136 L (137-145) mmol/L BUN 23 H (7-17) mg/dL Glucose 121 H 117 H (74-99) mg/dL Calcium 8.3 L 7.2 L (8.4-10.2) mg/dL Total Bilirubin 1.6 H 1.9 H (0.2-1.3) mg/dL AST 672 H 1459 H (14-36) U/L ALT 241 H 620 H (4-34) U/L Alkaline Phosphatase 217 H 219 H (38-126) U/L Total Protein 5.8 L (6.3-8.2) g/dL Albumin 3.4 L (3.5-5.0) g/dL Amylase 219 H (30-110) U/L Lipase 2633 H 693 H (23-300) U/L Thrombosis Risk Factor Assmnt - Choose All That Apply Any of the Below Risk Factors Present?: Yes Each Factor Represents 1 point: Age 41-60 years Other Risk Factors: No Other congenital or acquired thrombophilia - If yes, enter type in comment: No Thrombosis Risk Factor Assessment Total Risk Factor Score: 1 Thrombosis Risk Factor Assessment Level: Low Risk
[2022-10-15] MEDS: ONDANSETRON 4 MG/2 ML VIAL IVP PRN (19:41)
[2022-10-16] MEDS: HYDROmorphone 0.5 MG/0.5 ML SYRINGE IVP PRN ×6 (00:06→15:13)
[2022-10-16] MEDS: ONDANSETRON 4 MG/2 ML VIAL IVP PRN ×3 (04:14→20:05)
[2022-10-16] MEDS: SODIUM CHLORIDE 0.9% 1,000 ML IV SCH ×3 (07:27→20:05)
[2022-10-16] MEDS: PANTOPRAZOLE 40 MG/10 ML VIAL IV SCH (08:42)
[2022-10-16] MEDS: ENOXAPARIN 40 MG/0.4 ML SYRINGE SQ SCH (08:43)
[2022-10-16 09:17] LABS: ALT 412 U/L (4-34); AST 494 U/L (14-36); African American GFR (CKD) >90 (>60 ml/min/1.73 sqM); Albumin 3.2 g/dL (3.5-5.0); Albumin/Globulin Ratio 1.4; Alkaline Phosphatase 146 U/L (38-126); Anion Gap 7 mmol/L; Blood Urea Nitrogen 12 mg/dL (7-17); Calcium 7.5 mg/dL (8.4-10.2); Carbon Dioxide 24 mmol/L (22-30); Chloride 103 mmol/L (98-107); Globulin 2.3 g/dL; Glucose 88 mg/dL (74-99); Lipase 21 U/L (23-300); Non-African American GFR(CKD) >90 (>60 ml/min/1.73 sqM); Potassium 3.6 mmol/L (3.5-5.1); Sodium 134 mmol/L (137-145); Total Bilirubin 1.6 mg/dL (0.2-1.3); Total Protein 5.5 g/dL (6.3-8.2)
[2022-10-16 12:27] LABS: Albumin 3.1 g/dL (3.5-5.0); Albumin/Globulin Ratio 1.2; Bilirubin,Unconjugated 1.2 mg/dL (0.0-1.1); Globulin 2.5 g/dL; Total Bilirubin 1.5 mg/dL (0.2-1.3); Total Protein 5.6 g/dL (6.3-8.2)
--- NOTE | 2022-10-16 12:54 | XR ---
EXAMINATION TYPE: XR chest 1V portable DATE OF EXAM: 10/16/2022 12:41 PM COMPARISON: None TECHNIQUE: XR chest 1V portable Portable AP radiograph of the chest. CLINICAL INDICATION:Female, 51 years old with history of short of breath; FINDINGS: Lungs/Pleura: There is no evidence of pleural effusion, focal consolidation, or pneumothorax. Azygou s fissure demonstrated with a 1.2 cm pulmonary nodule in the right upper lobe. Pulmonary vascularity: Unremarkable. Heart/mediastinum: Cardiomediastinal silhouette is unremarkable. Musculoskeletal: No acute osseous pathology. IMPRESSION: 1. No acute cardiopulmonary disease/process. 2. Right upper lobe 1.2 cm pulmonary nodule. Further evaluation with CT chest is recommended.
--- NOTE | 2022-10-16 13:05 | P.PN ---
Subjective Progress Note Date: 10/16/22 CHIEF COMPLAINT: Pancreatitis HISTORY OF PRESENT ILLNESS: Patient reports that she is feeling about 50% b kendal. She does complain of epigastric abdominal pain. She did have one episode of vomiting last night. She is complaining of diarrhea. She does report the pain radiates through the abdomen to the back. She's had 3 episodes of pancreatitis in the past. History of cholecystectomy and history of ERCP short while later. She had been recently at the [facility] and had been drinking alcohol. She had a low-grade temp of 100.3 last night. Ultrasound had shown CBD dilated at 1.6 cm. WBC 7.3 sodium 134 potassium 3.6 creatinine 0.6 for total bilirubin is down from 1.6-1.5. Liver enzymes trending down AST 1459- 474 ALT 620-417 alk phos 219-144 lipase down from 6 [id number] PHYSICAL EXAM: VITAL SIGNS: Reviewed. GENERAL: Well-developed in no acute distress. ABDOMEN: Soft. Nondistended. Epigastric tenderness NEUROLOGIC: Alert and oriented. Cranial nerves II through XII grossly intact. ASSESSMENT: 1. Acute pancreatitis 2. Elevated liver enzymes possible acute alcoholic hepatitis 3. History of cholecystectomy 4. History of pancreatitis with dilated common bile duct 1 year ago and MRCP at that time PLAN: -Check hepatitis panel due to recent traveling with elevated liver enzymes -Continue to monitor LFTs -Continue clear liquid diet -Continue IV fluids -Continue supportive care Physician Envelope Folding Machine Operator note has been reviewed by physician. Signing provider agrees with the documented findings, assessment, and plan of care. Objective - Vital Signs Vital signs: Vital Signs Temp 98.7 F 10/16/22 07:34 Pulse 70 10/16/22 07:34 Resp 18 10/16/22 07:34 BP 106/68 10/16/22 07:34 Pulse Ox 94 L 10/16/22 07:48 FiO2 Intake & Output 10/15/22 10/16/22 10/16/22 18:59 06:59 18:59 Weight 65.771 kg Other: # Voids 2 3 3 - Labs CBC & Chem 7: 10/15/22 05:07 10/16/22 08:04 Labs: Abnormal Lab Results - Last 24 Hours (Table) 10/16/22 Range/Units 08:04 Sodium 134 L (137-145) mmol/L Calcium 7.5 L (8.4-10.2) mg/dL Total Bilirubin 1.6 H (0.2-1.3) mg/dL AST 494 H (14-36) U/L ALT 412 H (4-34) U/L Alkaline Phosphatase 146 H (38-126) U/L Total Protein 5.5 L (6.3-8.2) g/dL Albumin 3.2 L (3.5-5.0) g/dL Lipase 21 L (23-300) U/L
[2022-10-16] MEDS: IOPAMIDOL CONTRAST (ORAL USE) VIAL PO PRN ×2 (15:09→16:00)
[2022-10-16] MEDS ORDERED: MORPHINE SULFATE 2 MG/ML SYRINGE IVP PRN (15:24)
[2022-10-16] MEDS ORDERED: diphenhydrAMINE 50 MG/ML 1 ML VIAL IVP STA (15:25)
--- NOTE | 2022-10-16 17:18 | CT ---
EXAMINATION TYPE: CT ChestAbdPelvis w con CT DLP: 893 mGycm, Automated exposure control for dose reduction was used. DATE OF EXAM: 10/16/2022 4:46 PM COMPARISON: None. CLINICAL INDICATION:Female, 51 years old with history of abd pain, pancreatitis, lung nodule; Pancre atitis Technique: Multiple axial images of the chest, abdomen, and pelvis were obtained. Two-dimensional cor onal and sagittal reconstructions were obtained. Contrast used:100ML mL of Isovue 300 with IV Contrast, Oral contrast used: with Oral Contrast Findings: CHEST: LUNGS/ PLEURA: Azygous fissure in the right upper lung. Groundglass opacities are noted in the right lower lung superior segment. Streaky atelectasis in the left lung base. Trace bilateral pleural effus ion are present. AIRWAY: Patent and unremarkable. HEART: Size within normal limits. MEDIASTINUM: No gross evidence of adenopathy. VASCULATURE: No aortic aneurysm. MUSCULOSKELETAL: No acute osseous abnormalities. SOFT TISSUES/LYMPH NODES: Unremarkable. LOWER NECK: No significant findings. ABDOMEN: ABDOMEN LIVER: Unremarkable GALLBLADDER AND BILE DUCTS: Cholecystectomy clips are present. PANCREAS: No evidence for ductal dilation. The pancreatic parenchyma appears within normal limits. SPLEEN: Unremarkable. ADRENAL GLANDS: Unremarkable. KIDNEYS AND URETERS: No evidence of hydronephrosis or renal calculus. The ureters are unremarkable. PELVIS BLADDER: Unremarkable REPRODUCTIVE: Unremarkable. ABDOMEN & PELVIS STOMACH AND BOWEL: Circumferential wall thickening of the cecum extending into the transverse colon. Fat stranding changes are seen within the colon. There is an accordion sign present. PERITONEUM: Trace fluid is seen within the pelvis, no evidence of pneumoperitoneum. VASCULATURE: No evidence of aortic aneurysm. MUSCULOSKELETAL: No acute osseous abnormalities LYMPH NODES: No gross evidence for lymphadenopathy. Prominent lymph nodes within the mesentery likely secondary to a forementioned colitis. SOFT TISSUE/ABDOMINAL WALL: Fat-containing umbilical hernia. IMPRESSION: 1. Colitis involving the cecum extending to the distal two thirds transverse colon. Correlate for ps eudomembranous colitis. 2. Pancreatitis appears within normal limits without evidence for pancreatitis. 3. Trace fluid in the pelvis likely reactive. 4. Right lower lungs superior segment groundglass opacities with trace bilateral pleural effusions.
[2022-10-16] MEDS: AMPICILLIN-SULBACTAM 3 GM in SODIUM CHLORIDE 0.9% 100 ML IVPB SCH (20:04)
[2022-10-16] MEDS: ACETAMINOPHEN TAB 325 MG TAB PO PRN (20:04)
--- NOTE | 2022-10-17 00:07 | P.PN ---
Subjective Progress Note Date: 10/16/22 51-year-old female came in with comments of epigastric abdominal pain nausea vomiting severe sharp found to have pancreatitis. Patient recently returned from the [place] where she did drink more than usual. Patient had a cholecystectomy in the past on some of the abdomen did show dilated the common bile duct along with elevated liver enzymes AST 1459 and ALT 620 consistent with alcoholic hepatitis. Patient is on IV fluids at this time. 10/16/2022 Patient is seen and evaluated in follow-up this morning reporting lower abdominal pain with diarrhea. Patient did have a couple episodes of diarrhea and reports is somewhat improved at this time although continues with abdominal pain and cramping. Will order CT abdomen and pelvis chest. Patient also maintained on 2-3 L via nasal cannula reporting some shortness of breath and does not wear oxygen outpatient. Patient also noted to have a low-grade temp and will obtain blood cultures along with chest x-ray. Gen. surgery is follow ing with no plans for surgical intervention recommending IV hydration and bowel rest. Review of systems: Constitutional: reports of fatigue, low-grade fever, or chills Cardiovascular: No reports of chest pain or palpitations Respiratory: reports of some shortness of breath , no cough GI: No reports of nausea, vomiting, reports diarrhea : No reports of dysuria or retention Neurovascular: reports of generalized weakness All medications have been reviewed PHYSICAL EXAMINATION: GENERAL: The patient is patient awake, alert and oriented 3, ill-appearing. Well developed, well nourished. HEENT: Pupils are round and equally reacting to light. EOMI. No scleral icterus. No conjunctival pallor. Normocephalic, atraumatic. No pharyngeal erythema. No thyromegaly. CARDIOVASCULAR: S1 and S2 present. No murmurs, rubs, or gallops. PULMONARY: Chest is clear to auscultation, no wheezing or crackles. ABDOMEN: Soft, epigastric abdominal tenderness that has traveled down into the lower right and left quadrant, nondistended, normoactive bowel sounds. No palpable organomegaly. MUSCULOSKELETAL: No joint swelling or deformity. EXTREMITIES: No cyanosis, clubbing, or pedal edema. NEUROLOGICAL: Gross neurological examination did not reveal any focal deficits. Generalized weakness SKIN: No rashes. Flushed cheeks of the face bilaterally Assessment: -Alcoholic Pancreatitis likely secondary to recent traveling and excessive drinking -Acute alcoholic hepatitis: supportive care, monitor liver enzymes -History of trigeminal neuralgia presently not having any pain or headache. -Fever with increased abdominal pain -History of pancreatitis 3 in the past -DVT prophylaxis: Lovenox -GI prophylaxis with Protonix -Full code Plan: Recommend continue with IV hydration and clear liquids Gen. surgery followed with no plans for intervention recommending bowel rest and hydration with advancing diet as tolerated, monitor LFTs Patient with a fever last night low-grade and chest x-ray ordered showing no acute pulmonary process although there is a small pulmonary nodule on the right recommending CT and will order CT chest abdomen pelvis Will initiate empiric antibiotics and consult infectious disease and appreciate input and recommendations Recommend follow-up labs in the a.m. The impression and plan of care has been dictated by Eula Martinez, Nurse Practitioner as directed. Dr. Martinez MD I have performed a history and examination and MDM of this patient, discussed the same with the dictator, and agree with the dictator's assessment and plan as written ,documented as a scribe. Based on total visit time, I have performed more than 50% of the visit. Objective - Vital Signs Vital signs: Vital Signs Temp 98.7 F 10/16/22 07:34 Pulse 70 10/16/22 07:34 Resp 18 10/16/22 07:34 BP 106/68 10/16/22 07:34 Pulse Ox 94 L 10/16/22 07:48 FiO2 Intake & Output 10/15/22 10/16/22 10/16/22 18:59 06:59 18:59 Weight 65.771 kg Other: # Voids 2 3 - Labs CBC & Chem 7: 10/15/22 05:07 10/16/22 08:04 Labs: Abnormal Lab Results - Last 24 Hours (Table) 10/15/22 10/16/22 Range/Units 09:55 08:04 Sodium 136 L 134 L (137-145) mmol/L Glucose 117 H (74-99) mg/dL Calcium 7.2 L 7.5 L (8.4-10.2) mg/dL Total Bilirubin 1.9 H 1.6 H (0.2-1.3) mg/dL AST 1459 H 494 H (14-36) U/L ALT 620 H 412 H (4-34) U/L Alkaline Phosphatase 219 H 146 H (38-126) U/L Total Protein 5.8 L 5.5 L (6.3-8.2) g/dL Albumin 3.4 L 3.2 L (3.5-5.0) g/dL Lipase 693 H 21 L (23-300) U/L
[2022-10-17] MEDS ORDERED: ONDANSETRON 4 MG/2 ML VIAL IVP PRN (00:08)
[2022-10-17] MEDS: AMPICILLIN-SULBACTAM 3 GM in SODIUM CHLORIDE 0.9% 100 ML IVPB SCH (05:14)
[2022-10-17] MEDS: ACETAMINOPHEN TAB 325 MG TAB PO PRN ×3 (05:15→20:07)
[2022-10-17 07:01] LABS: Basophils % (A) 0 %; Eosinophils % (A) 1 %; HCT 38.6 % (34.0-46.0); Lymphocytes # (A) 0.6 k/uL (1.0-4.8); Lymphocytes % (A) 12 %; MCH 30.4 pg (25.0-35.0); MCHC 33.7 g/dL (31.0-37.0); MCV 90.1 fL (80.0-100.0); Mean Platelet Volume 8.7; Monocytes # (A) 0.2 k/uL (0-1.0); Monocytes % (A) 5 %; Neutrophils # (A) 4.1 k/uL (1.3-7.7); Neutrophils % (A) 81 %; Platelet Count 107 k/uL (150-450); RBC 4.29 m/uL (3.80-5.40); RDW 13.2 % (11.5-15.5); WBC 5.1 k/uL (3.8-10.6)
[2022-10-17 07:09] LABS: ALT 273 U/L (4-34); AST 227 U/L (14-36); African American GFR (CKD) >90 (>60 ml/min/1.73 sqM); Albumin 3.2 g/dL (3.5-5.0); Albumin/Globulin Ratio 1.3; Alkaline Phosphatase 136 U/L (38-126); Anion Gap 11 mmol/L; Blood Urea Nitrogen 9 mg/dL (7-17); Calcium 7.6 mg/dL (8.4-10.2); Carbon Dioxide 21 mmol/L (22-30); Chloride 103 mmol/L (98-107); Globulin 2.5 g/dL; Glucose 102 mg/dL (74-99); Magnesium 1.6 mg/dL (1.6-2.3); Non-African American GFR(CKD) >90 (>60 ml/min/1.73 sqM); Potassium 3.6 mmol/L (3.5-5.1); Sodium 135 mmol/L (137-145); Total Bilirubin 1.1 mg/dL (0.2-1.3); Total Protein 5.7 g/dL (6.3-8.2)
[2022-10-17] MEDS: MULTIVITAMINS, THERA 1 EACH TAB PO SCH (08:29)
[2022-10-17] MEDS: ENOXAPARIN 40 MG/0.4 ML SYRINGE SQ SCH (08:29)
[2022-10-17] MEDS: CHOLECALCIFEROL 25 MCG (1000 IU) TABLET PO SCH (08:29)
[2022-10-17] MEDS: PREGABALIN 100 MG CAP PO SCH ×3 (08:29→20:08)
[2022-10-17] MEDS: CYANOCOBALAMIN 500 MCG TAB PO SCH (08:29)
[2022-10-17] MEDS: PANTOPRAZOLE 40 MG/10 ML VIAL IV SCH ×2 (08:29→20:08)
[2022-10-17] MEDS: ESTRADIOL PO SCH (08:30)
[2022-10-17] MEDS: NORETHINDRONE ACET PO SCH (08:30)
[2022-10-17] MEDS ORDERED: NON FORMULARY DRUG (Omega-3/Dha/Epa/Fish Oil [Fish Oil 1,000 Mg Softgel] 1 EACH Capsule) PO SCH (09:00)
[2022-10-17] MEDS ORDERED: ESCITALOPRAM 10 MG TAB PO SCH (09:00)
[2022-10-17] MEDS: PIPERACILLIN-TAZOBACTAM 3.375 GM in SODIUM CHLORIDE 0.9% 100 ML IVPB SCH ×2 (10:26→19:26)
[2022-10-17] MEDS ORDERED: DICYCLOMINE 10 MG CAP PO PRN (11:48)
[2022-10-17] MEDS: SODIUM CHLORIDE 0.9% 1,000 ML IV SCH ×2 (12:58→20:09)
[2022-10-17] MEDS ORDERED: Magnesium Replacement Protocol 1 EACH MISC MISCELLANE PRN (13:03)
[2022-10-17] MEDS: VANCOMYCIN 125 MG CAPSULE PO SCH ×3 (13:08→20:09)
[2022-10-17] MEDS ORDERED: HYDROcodone/APAP 5-325MG 1 EACH TAB PO PRN (13:12)
[2022-10-17] MEDS ORDERED: METOCLOPRAMIDE 5 MG/ML 2 ML VIAL IVP PRN (13:12)
[2022-10-17] MEDS: MAGNESIUM SULFATE-D5W PMX 1 GM in DEXTROSE/WATER 1 100ML.BAG IVPB SCH ×2 (13:19→15:32)
--- NOTE | 2022-10-17 14:13 | P.PN ---
Subjective Progress Note Date: 10/17/22 CHIEF COMPLAINT: Pancreatitis HISTORY OF PRESENT ILLNESS: Patient resting comfortably. Significant other at bedside. He does report that her pain has been doing better. Her diarrhea is slightly less. She did have low-grade fevers. Infectious disease now on consult. Computed tomography scan of the chest abdomen and pelvis was ordered by medicine service due to a lung nodule noted on x-ray. Results showing colitis involving the cecum extending into the distal two thirds transverse colon. Correlate for pseudomembranous colitis. Pancreas appears within normal limits without evidence for pancreatitis. Trace fluid in the pelvis likely reactive. Right lower lung superior segment groundglass opacities with trace bilateral pleural effusions. Low-grade fevers during the night. Currently afeb rile. WBC is 5.1 Hgb is 13 and platelets 107/135 potassium 3.6 creatinine 0.60 total bilirubin 1.1 LFTs trending down PHYSICAL EXAM: VITAL SIGNS: Reviewed. GENERAL: Well-developed in no acute distress. ABDOMEN: Soft. Nondistended. Epigastric tenderness NEUROLOGIC: Alert and oriented. Cranial nerves II through XII grossly intact. ASSESSMENT: 1. Acute pancreatitis improving 2. Elevated liver enzymes possible acute alcoholic hepatitis 3. History of cholecystectomy 4. History of pancreatitis with dilated common bile duct 1 year ago and MRCP at that time 5. Diarrhea with computed tomography scan showing evidence of colitis involving the cecum and into the distal two thirds of transverse colon PLAN: -Check acute hepatitis panel due to recent traveling with elevated liver enzy mes -Check stool for C. diff -Agree with infectious disease consult -Continue to monitor LFTs -Continue clear liquid diet -Continue IV fluids -Continue supportive care Physician Band Nailer note has been reviewed by physician. Signing provider agrees with the documented findings, assessment, and plan of care. Objective - Vital Signs Vital signs: Vital Signs Temp 97.7 F 10/17/22 08:00 Pulse 69 10/17/22 08:00 Resp 16 10/17/22 08:00 BP 123/80 10/17/22 08:00 Pulse Ox 92 L 10/17/22 08:00 FiO2 Intake & Output 10/16/22 10/17/22 10/17/22 18:59 06:59 18:59 Other: Voiding Method Toilet Toilet # Voids 3 3 - Labs CBC & Chem 7: 10/17/22 06:37 10/17/22 06:37 Labs: Abnormal Lab Results - Last 24 Hours (Table) 10/17/22 10/17/22 Range/Units 06:37 06:37 Plt Count 107 L (150-450) k/uL Lymphocytes # 0.6 L (1.0-4.8) k/uL Sodium 135 L (137-145) mmol/L Carbon Dioxide 21 L (22-30) mmol/L Glucose 102 H (74-99) mg/dL Calcium 7.6 L (8.4-10.2) mg/dL AST 227 H (14-36) U/L ALT 273 H (4-34) U/L Alkaline Phosphatase 136 H (38-126) U/L Total Protein 5.7 L (6.3-8.2) g/dL Albumin 3.2 L (3.5-5.0) g/dL
[2022-10-17 16:51] LABS: Hepatitis A Antibody IgM Nonreactive; Hepatitis B Core IgM Nonreactive; Hepatitis B Surface Antigen Nonreactive; Hepatitis C IgG Antibody Nonreactive
--- NOTE | 2022-10-17 22:11 | P.CONS ---
History of Present Illness - Reason for Consult Consult date: 10/17/22 - History of Present Illness Patient is a 51-year-old female with a past medical history significant pancreatitis trigeminal neuralgia recently returned from a trip to [facility] presenting to the hospital with abdominal pain and nausea and vomiting patient symptom has been going on for about a day before presentation to the hospital patient pain has been mostly in the upper abdominal area described to be sharp 5-6 of 10 no radiation associated nausea and vomiting and also have a diarrhea with multiple loose stools which are watery but no blood or mucus in the stools patient did have some chills and the patient was noted to be febrile with a temperature of 102 F 2 days ago this morning the patient is afebrile, patient did have a normal white count kidney function has been normal patient did have elevated liver enzymes with elevated amylase and lipase urine has been negative hepatitis serology was negative patient did have an abdominal ultrasound bili dilatation and the patient that is status postcholecystectomy she did have a CT of the chest abdominal pelvis completed last night colitis i nvolving the cecum extending to the distal two thirds of transverse colon correlate for pseudomembranous colitis pancreas appears within normal limits without evidence of pancreatitis trace fluid in the pelvis likely reactive infectious was consulted for further management patient has been medically started on Zosyn by admitting team patient denies any history of antibiotic exposure in the recent past Past Medical History Additional Past Medical History / Comment(s): pancreatitis, trigeminal neuralgia History of Any Multi-Drug Resistant Organisms: None Reported Past Surgical History: Appendectomy, Cholecystectomy, Tonsillectomy Additional Past Surgical History / Comment(s): bunionectomy Past Anesthesia/Blood Transfusion Reactions: No Reported Reaction Smoking Status: Former smoker Medications and Allergies Home Medications Medication Instructions Recorded Confirmed Type Cholecalciferol [Vitamin D3 (25 25 mcg PO DAILY 10/15/22 10/15/22 History Mcg = 1000 Iu)] Cyanocobalamin [Vitamin B-12] 500 mcg PO DAILY 10/15/22 10/15/22 History Escitalopram [Lexapro] 5 mg PO DAILY 10/15/22 10/17/22 History Estradiol/Norethindrone Acet 1 tab PO DAILY 10/15/22 10/15/22 History 0.5-0.1mg Tab Multivitamins, Thera [Multivitamin 1 tab PO DAILY 10/15/22 10/15/22 History (formulary)] Nipomo-3/Dha/Epa/Fish Oil [Fish Oil 1 cap PO DAILY 10/15/22 10/15/22 History 1,000 mg Softgel] Pregabalin [Lyrica] 200 mg PO TID 10/15/22 10/15/22 History Rosuvastatin [Crestor] 20 mg PO DAILY 10/15/22 10/15/22 History Allergies Allergy/AdvReac Type Severity Reaction Status Date / Time No Known Allergies Allergy Verified 10/15/22 12:20 Physical Exam Vitals: Vital Signs Temp Pulse Resp BP Pulse Ox 10/17/22 08:00 97.7 F 69 16 123/80 92 L 10/17/22 02:00 98.3 F 75 14 116/73 90 L 10/16/22 22:51 98.2 F 10/16/22 20:00 100.3 F H 71 17 116/75 92 L 10/16/22 15:31 98.2 F 64 17 103/68 93 L Intake and Output 10/16/22 10/17/22 10/17/22 22:59 06:59 14:59 Other: Voiding Method Toilet Toilet # Voids 3 Results CBC & Chem 7: 10/17/22 06:37 10/17/22 06:37 Labs: Abnormal Lab Results - Last 24 Hours (Table) 10/16/22 10/17/22 10/17/22 Range/Units 08:04 06:37 06:37 Plt Count 107 L (150-450) k/uL Lymphocytes # 0.6 L (1.0-4.8) k/uL Sodium 135 L (137-145) mmol/L Carbon Dioxide 21 L (22-30) mmol/L Glucose 102 H (74-99) mg/dL Calcium 7.6 L (8.4-10.2) mg/dL Total Bilirubin 1.5 H (0.2-1.3) mg/dL Unconjugated Bilirubin 1.2 H (0.0-1.1) mg/dL AST 474 H 227 H (14-36) U/L ALT 417 H 273 H (4-34) U/L Alkaline Phosphatase 144 H 136 H (38-126) U/L Total Protein 5.6 L 5.7 L (6.3-8.2) g/dL Albumin 3.1 L 3.2 L (3.5-5.0) g/dL Assessment and Plan Plan: 1patient presented hospital with epigastric abdominal pain and did have a nausea vomiting as well as diarrhea with initial concern for possible pancreatitis as the patient did have elevated amylase and lipase however CT abdominal pelvis reported normal appearance of the pancreatitis but did shows evidence of colitis involving the cecum and the transverse colon with a question of infectious versus noninfectious colitis, patient denies any history of antibiotic exposure but recently returned from a trip to [facility] a question of possible infectious colitis 2-obtain stool culture and stool for C. difficile 3-continue with the Zosyn however empirically add vancomycin while waiting for the stool for C. difficile to be completed We will follow on clinical condition and cultures to further adjust medication if needed Thank you for this consultation we will follow the patient along with you Time with Patient: Greater than 30
[2022-10-18 02:45] VITALS: PULSE 75
[2022-10-18] MEDS: PIPERACILLIN-TAZOBACTAM 3.375 GM in SODIUM CHLORIDE 0.9% 100 ML IVPB SCH ×2 (03:26→10:10)
[2022-10-18] MEDS: ACETAMINOPHEN TAB 325 MG TAB PO PRN (04:11)
--- NOTE | 2022-10-18 05:27 | P.PN ---
Subjective Progress Note Date: 10/17/22 51-year-old female came in with comments of epigastric abdominal pain nausea vomiting severe sharp found to have pancreatitis. Patient recently returned from the [place] where she did drink more than usual. Patient had a cholecystectomy in the past on some of the abdomen did show dilated the common bile duct along with elevated liver enzymes AST 1459 and ALT 620 consistent with alcoholic hepatitis. Patient is on IV fluids at this time. 10/16/2022 Patient is seen and evaluated in follow-up this morning reporting lower abdominal pain with diarrhea. Patient did have a couple episodes of diarrhea and reports is somewhat improved at this time although continues with abdominal pain and cramping. Will order CT abdomen and pelvis chest. Patient also maintained on 2-3 L via nasal cannula reporting some shortness of breath and does not wear oxygen outpatient. Patient also noted to have a low-grade temp and will obtain blood cultures along with chest x-ray. Gen. surgery is follow ing with no plans for surgical intervention recommending IV hydration and bowel rest. 10/17/2022 Patient is seen and evaluated in follow-up continues to report abdominal pain with some cramping and continues to have diarrhea. Multiple medical consultations now following including general surgery and infectious disease. Blood culture pending and patient started on antibiotics patient continues to have low-grade temps continued abdominal pain and cramping. CT abdomen with concerns of colitis and will continue on clear liquids. Patient denies chest pain or shortness of breath. Patient reports generalized weakness with continued nausea denies vomiting. Stool sample sent for C. diff pending at this time. Review of systems: Constitutional: reports of fatigue, low-grade fever, or chills Cardiovascular: No reports of chest pain or palpitations Respiratory: No reports of shortness of breath , no cough GI: reports of continued nausea, no vomiting, reports diarrhea : No reports of dysuria or retention Neurovascular: reports of generalized weakness All medications have been reviewed Active Medications Acetaminophen (Acetaminophen Tab 325 Mg Tab) 650 mg PO Q6HR PRN PRN Reason: Fever and/ or Pain Last Admin: 10/18/22 04:11 Dose: 650 mg Hydrocodone Bitart/Acetaminophen (Hydrocodone/Apap 5-325mg 1 Each Tab) 1 each PO Q6HR PRN PRN Reason: Pain Cholecalciferol (Cholecalciferol 25 Mcg (1000 Iu) Tablet) 25 mcg PO DAILY BILL Last Admin: 10/17/22 08:29 Dose: 25 mcg Cyanocobalamin (Cyanocobalamin 500 Mcg Tab) 500 mcg PO DAILY [facility] Last Admin: 10/17/22 08:29 Dose: 500 mcg Dicyclomine HCl (Dicyclomine 10 Mg Cap) 10 mg PO TID PRN PRN Reason: Dyspepsia Last Admin: 10/17/22 13:08 Dose: 10 mg Enoxaparin Sodium (Enoxaparin 40 Mg/0.4 Ml Syringe) 40 mg SQ DAILY [facility] Last Admin: 10/17/22 08:29 Dose: 40 mg Escitalopram Oxalate (Escitalopram 5 Mg Tab) 5 mg PO DAILY [facility] Sodium Chloride (Saline 0.9%) 1,000 mls @ 100 mls/hr IV .Q10H [facility] Last Admin: 10/17/22 20:09 Dose: 100 mls/hr Piperacillin Sod/Tazobactam (Sod 3.375 gm/ Sodium Chloride) 100 mls @ 25 mls/hr IVPB Q8H [facility]; Protocol Last Admin: 10/18/22 03:26 Dose: 25 mls/hr Metoclopramide HCl (Metoclopramide 5 Mg/Ml 2 Ml Vial) 5 mg IVP Q6HR PRN PRN Reason: Nausea And Vomiting Miscellaneous Information (Magnesium Replacement Protocol 1 Each Misc) 1 each MISCELLANE DAILY PRN; Protocol PRN Reason: Per Protocol Morphine Sulfate (Morphine Sulfate 2 Mg/Ml Syringe) 2 mg IVP Q4HR PRN PRN Reason: Pain/Discomfort Last Admin: 10/16/22 21:09 Dose: 2 mg Multivitamins (Multivitamins, Thera 1 Each Tab) 1 each PO DAILY [facility] Last Admin: 10/17/22 08:29 Dose: 1 each Naloxone HCl (Naloxone 0.4 Mg/Ml 1 Ml Vial) 0.2 mg IV Q2M PRN PRN Reason: Opioid Reversal Non-Formulary Medication (Estradiol/Norethindrone Acet 0.5-0.1mg Tab) 1 tab PO DAILY [facility] Last Admin: 10/17/22 08:30 Dose: Not Given Ondansetron HCl (Ondansetron 4 Mg/2 Ml Vial) 4 mg IVP Q6H PRN PRN Reason: Nausea And Vomiting Last Admin: 10/17/22 05:15 Dose: 4 mg Pantoprazole Sodium (Pantoprazole 40 Mg/10 Ml Vial) 40 mg IV BID [facility] Last Admin: 10/17/22 20:08 Dose: 40 mg Pregabalin (Pregabalin 100 Mg Cap) 200 mg PO TID [facility] Last Admin: 10/17/22 20:08 Dose: 200 mg PHYSICAL EXAMINATION: GENERAL: The patient is patient awake, alert and oriented 3, ill-appearing. Well developed, well nourished. HEENT: Pupils are round and equally reacting to light. EOMI. No scleral icterus. No conjunctival pallor. Normocephalic, atraumatic. No pharyngeal erythema. No thyromegaly. CARDIOVASCULAR: S1 and S2 present. No murmurs, rubs, or gallops. PULMONARY: Chest is clear to auscultation, no wheezing or crackles. ABDOMEN: Soft, epigastric abdominal tenderness that has traveled down into the lower right and left quadrant, nondistended, normoactive bowel sounds. No palpable organomegaly. MUSCULOSKELETAL: No joint swelling or deformity. EXTREMITIES: No cyanosis, clubbing, or pedal edema. NEUROLOGICAL: Gross neurological examination did not reveal any focal deficits. Generalized weakness SKIN: No rashes. Assessment: -Alcoholic Pancreatitis likely secondary to recent traveling and excessive drinking while on vacation -Acute alcoholic hepatitis: supportive care, monitor liver enzymes -History of trigeminal neuralgia presently not having any pain or headache. -Fever with increased abdominal pain, concern for possible infectious -Concerns for colitis as noted on CT abdomen -History of pancreatitis 2 in the past with MRCP one year ago -History of cholecystectomy -DVT prophylaxis: Lovenox -GI prophylaxis with Protonix -Full code Plan: Recommend continue with IV hydration and clear liquids Gen. surgery following with no plans for intervention recommending bowel rest a nd hydration, monitor LFTs Stool cultures and C. diff ordered and pending as patient continues to have diarrhea Patient with a fever last night low-grade and chest x-ray ordered showing no acute pulmonary process antibiotics have been initiated and infectious disease following and adding vancomycin awaiting for stool cultures and C. diff. Specimen was sent Encouraged to increase activity as tolerated Recommend follow-up labs in the a.m. The impression and plan of care has been dictated by Eula Martinez, Nurse Practitioner as directed. Dr. Andrea MD I have performed a history and examination and MDM of this patient, discussed the same with the dictator, and agree with the dictator's assessment and plan as written ,documented as a scribe. Based on total visit time, I have performed more than 50% of the visit. Objective - Vital Signs Vital signs: Vital Signs Temp 97.7 F 10/17/22 08:00 Pulse 69 10/17/22 08:00 Resp 16 10/17/22 08:00 BP 123/80 10/17/22 08:00 Pulse Ox 92 L 10/17/22 08:00 FiO2 Intake & Output 10/16/22 10/17/22 10/17/22 18:59 06:59 18:59 Other: Voiding Method Toilet Toilet # Voids 3 3 - Labs CBC & Chem 7: 10/17/22 06:37 10/17/22 06:37 Labs: Abnormal Lab Results - Last 24 Hours (Table) 10/17/22 10/17/22 Range/Units 06:37 06:37 Plt Count 107 L (150-450) k/uL Lymphocytes # 0.6 L (1.0-4.8) k/uL Sodium 135 L (137-145) mmol/L Carbon Dioxide 21 L (22-30) mmol/L Glucose 102 H (74-99) mg/dL Calcium 7.6 L (8.4-10.2) mg/dL AST 227 H (14-36) U/L ALT 273 H (4-34) U/L Alkaline Phosphatase 136 H (38-126) U/L Total Protein 5.7 L (6.3-8.2) g/dL Albumin 3.2 L (3.5-5.0) g/dL
[2022-10-18] MEDS: SODIUM CHLORIDE 0.9% 1,000 ML IV SCH (06:36)
[2022-10-18 07:13] LABS: ALT 186 U/L (4-34); AST 104 U/L (14-36); African American GFR (CKD) >90 (>60 ml/min/1.73 sqM); Albumin 2.9 g/dL (3.5-5.0); Albumin/Globulin Ratio 1.2; Alkaline Phosphatase 107 U/L (38-126); Anion Gap 7 mmol/L; Blood Urea Nitrogen <2 mg/dL (7-17); Calcium 7.2 mg/dL (8.4-10.2); Carbon Dioxide 26 mmol/L (22-30); Chloride 105 mmol/L (98-107); Globulin 2.4 g/dL; Glucose 140 mg/dL (74-99); Magnesium 1.8 mg/dL (1.6-2.3); Non-African American GFR(CKD) >90 (>60 ml/min/1.73 sqM); Sodium 138 mmol/L (137-145); Total Bilirubin 0.9 mg/dL (0.2-1.3); Total Protein 5.3 g/dL (6.3-8.2)
[2022-10-18 07:21] LABS: Basophils % (A) 0 %; Eosinophils # (A) 0.1 k/uL (0-0.7); Eosinophils % (A) 1 %; HCT 33.7 % (34.0-46.0); HGB 11.7 gm/dL (11.4-16.0); Lymphocytes # (A) 0.8 k/uL (1.0-4.8); Lymphocytes % (A) 15 %; MCH 29.9 pg (25.0-35.0); MCHC 34.6 g/dL (31.0-37.0); MCV 86.3 fL (80.0-100.0); Mean Platelet Volume 9.4; Monocytes # (A) 0.3 k/uL (0-1.0); Monocytes % (A) 6 %; Neutrophils # (A) 4.2 k/uL (1.3-7.7); Neutrophils % (A) 75 %; Platelet Count 123 k/uL (150-450); RDW 13.5 % (11.5-15.5); WBC 5.6 k/uL (3.8-10.6)
[2022-10-18 07:52] VITALS: BP 112/69; RESP 18; TEMP 98
[2022-10-18] MEDS: CYANOCOBALAMIN 500 MCG TAB PO SCH (08:34)
[2022-10-18] MEDS: ENOXAPARIN 40 MG/0.4 ML SYRINGE SQ SCH (08:34)
[2022-10-18] MEDS: ESTRADIOL PO SCH (08:34)
[2022-10-18] MEDS: NORETHINDRONE ACET PO SCH (08:34)
[2022-10-18] MEDS: MULTIVITAMINS, THERA 1 EACH TAB PO SCH (08:34)
[2022-10-18] MEDS: CHOLECALCIFEROL 25 MCG (1000 IU) TABLET PO SCH (08:34)
[2022-10-18] MEDS: PANTOPRAZOLE 40 MG/10 ML VIAL IV SCH (08:34)
[2022-10-18] MEDS: PREGABALIN 100 MG CAP PO SCH (08:41)
[2022-10-18] MEDS ORDERED: ESCITALOPRAM 5 MG TAB PO SCH (09:00)
[2022-10-18] MEDS ORDERED: IBUPROFEN 400 MG TAB PO PRN (09:06)
[2022-10-18] MEDS ORDERED: Potassium Replacement Protocol 1 EACH MISC MISCELLANE PRN (09:54)
[2022-10-18] MEDS ORDERED: Magnesium Replacement Protocol 1 EACH MISC MISCELLANE PRN (09:54)
--- NOTE | 2022-10-18 16:29 | P.PN ---
Subjective Progress Note Date: 10/18/22 CHIEF COMPLAINT: Pancreatitis HISTORY OF PRESENT ILLNESS: Patient reports she is feeling better today. She was started on antibiotics for possible colitis. Stool for C. diff negative. Pancreatitis has improved. She is scheduled for discharge today. She is tolerating diet. Afebrile. WBC is 5.6 Hgb 11.7 LFTs continue trend down hepatitis panel negative Patient seen and examined by Dr. Souza PHYSICAL EXAM: VITAL SIGNS: Reviewed. GENERAL: Well-developed in no acute distress. ABDOMEN: Soft. Nondistended. NEUROLOGIC: Alert and oriented. Cranial nerves II through XII grossly intact. ASSESSMENT: 1. Acute pancreatitis resolved 2. Elevated liver enzymes possible acute alcoholic hepatitis 3. History of cholecystectomy 4. History of pancreatitis with dilated common bile duct 1 year ago and MRCP at that time 5. Colitis improving PLAN: -Patient can be discharged from surgical standpoint -Continue antibiotics per ID service Physician Stripe Matcher note has been reviewed by physician. Signing provider agrees with the documented findings, assessment, and plan of care. Objective - Vital Signs Vital signs: Vital Signs Temp 98 F 10/18/22 07:49 Pulse 75 10/18/22 08:00 Resp 18 10/18/22 08:00 BP 112/69 10/18/22 07:49 Pulse Ox 94 L 10/18/22 07:49 FiO2 Intake & Output 10/17/22 10/18/22 10/18/22 18:59 06:59 18:59 Intake Total 120 Balance 120 Intake: Oral 120 Other: Voiding Method Toilet Toilet Toilet # Voids 4 - Labs CBC & Chem 7: 10/18/22 06:05 10/18/22 06:05 Labs: Abnormal Lab Results - Last 24 Hours (Table) 10/18/22 10/18/22 Range/Units 06:05 06:05 Hct 33.7 L (34.0-46.0) % Plt Count 123 L (150-450) k/uL Lymphocytes # 0.8 L (1.0-4.8) k/uL Potassium 3.0 L (3.5-5.1) mmol/L BUN <2 L (7-17) mg/dL Creatinine 0.50 L (0.52-1.04) mg/dL Glucose 140 H (74-99) mg/dL Calcium 7.2 L (8.4-10.2) mg/dL AST 104 H (14-36) U/L ALT 186 H (4-34) U/L Total Protein 5.3 L (6.3-8.2) g/dL Albumin 2.9 L (3.5-5.0) g/dL Microbiology - Last 24 Hours (Table) 10/16/22 13:54 Blood Culture - Preliminary Blood
--- NOTE | 2022-10-19 12:07 | P.DS ---
Providers Date of admission: 10/15/22 08:34 Expected date of discharge: 10/18/22 Attending physician: Alexandria Mendez Consults: 10/15/22 11:51 Consult Physician Routine Consulting Provider: Fer Souza Consult Reason/Comments: Dilated bile duct Do you want consulting provider notified?: Yes 10/16/22 19:54 Consult Physician Routine Consulting Provider: Travis Polanco Consult Reason/Comments: colitis, pancreatitis, now having fevers Do you want consulting provider notified?: Yes Primary care physician: Mary Salmon DO Hospital Course: Final diagnosis -Alcoholic Pancreatitis likely secondary to recent traveling and excessive drinking while on vacation -Acute alcoholic hepatitis, trending down -History of trigeminal neuralgia -Fever with increased abdominal pain, concern for possible infectious colitis as noted on CT -History of pancreatitis 2 in the past with MRCP one year ago -History of cholecystectomy -DVT prophylaxis -GI prophylaxis -Full code Discharge disposition Patient is being discharged in a stable condition with guarded prognosis to home. Patient will follow-up with Dr. Salmon in the outpatient setting upon discharge. Patient is to continue with oral Augmentin twice daily for the next 5 days and outpatient follow-up with GI as scheduled. Total time taken is greater than 35 minutes. Hospital course This is a 21-year-old female who was recently admitted with abdominal pain and acute pancreatitis and had recently gone on vacation and had been drinking daily while on vacation with concerns of possible alcoholic hepatitis with alcohol- induced pancreatitis. Patient did have previous episode of pancreatitis one year ago and also had cholecystectomy. Patient being followed by general surgery along with infectious disease as patient did have fevers which is now afebrile and patient reports to feeling improved and would like to go home. Patient instructed to follow-up with GI outpatient as well as continue on oral Augmentin twice daily for the next 5 days and Protonix daily. Patient encouraged to continue with clear liquid to low fiber diet over the next few days and slowly advance as tolerated. Patient instructed to monitor closely for any further fevers and is having increasing symptoms report back to the ER or nearest hospital. Patient instructed to follow-up with primary care provider this week. Currently no reports of chest pain, shortness of breath, or palpitations. Patient is afebrile. No reports of nausea or vomiting and patient is tolerating diet. Patient will be discharged home today. Guarded p rognosis Physical exam: Gen: This is a 51-year-old female is awake, alert and oriented 3, well- developed, well-nourished HEENT: Head is atraumatic, normocephalic. Pupils equal, round. Sclerae is a nicteric. NECK: Supple. No JVD. No lymphadenopathy. No thyromegaly. LUNGS: Clear to auscultation. No wheezes or rhonchi. No intercostal retractions. HEART: Regular rate and rhythm. No murmur. ABDOMEN: Soft. Mildly tender in lower right and left quadrants on palpation. Bowel sounds are present. No masses. No tenderness. EXTREMITIES: No pedal edema. No calf tenderness. NEUROLOGICAL: Patient is awake, alert and oriented x3. Cranial nerves 2 through 12 are grossly intact. Please refer to medication reconciliation sheet for a list of medications. The impression and plan of care has been dictated by Eula Martinez, Nurse Practitioner as directed. Dr. Andrea MD I have performed a history and examination and MDM of this patient, discussed the same with the dictator, and agree with the dictator's assessment and plan as written ,documented as a scribe. Based on total visit time, I have performed more than 50% of the visit. Patient Condition at Discharge: Stable Plan - Discharge Summary Discharge Rx Participant: Yes New Discharge Prescriptions: New Amoxic-Pot Clav 875-125Mg [Augmentin 875-125] 1 tab PO Q12HR 5 Days #10 tab Dicyclomine [Bentyl] 10 mg PO TID PRN #10 cap PRN Reason: Dyspepsia Ibuprofen [Motrin] 400 mg PO TID PRN tab PRN Reason: Pain Pantoprazole [Protonix] 40 mg PO BID 15 Days #30 tab Continue Multivitamins, Thera [Multivitamin (formulary)] 1 tab PO DAILY Cholecalciferol [Vitamin D3 (25 Mcg = 1000 Iu)] 25 mcg PO DAILY Escitalopram [Lexapro] 5 mg PO DAILY Rosuvastatin [Crestor] 20 mg PO DAILY Sully-3/Dha/Epa/Fish Oil [Fish Oil 1,000 mg Softgel] 1 cap PO DAILY Estradiol/Norethindrone Acet 0.5-0.1mg Tab 1 tab PO DAILY Cyanocobalamin [Vitamin B-12] 500 mcg PO DAILY Pregabalin [Lyrica] 200 mg PO TID Discharge Medication List Cholecalciferol [Vitamin D3 (25 Mcg = 1000 Iu)] 25 mcg PO DAILY 10/15/22 [History] Cyanocobalamin [Vitamin B-12] 500 mcg PO DAILY 10/15/22 [History] Escitalopram [Lexapro] 5 mg PO DAILY 10/15/22 [History] Estradiol/Norethindrone Acet 0.5-0.1mg Tab 1 tab PO DAILY 10/15/22 [History] Multivitamins, Thera [Multivitamin (formulary)] 1 tab PO DAILY 10/15/22 [History] Sully-3/Dha/Epa/Fish Oil [Fish Oil 1,000 mg Softgel] 1 cap PO DAILY 10/15/22 [History] Pregabalin [Lyrica] 200 mg PO TID 10/15/22 [History] Rosuvastatin [Crestor] 20 mg PO DAILY 10/15/22 [History] Amoxic-Pot Clav 875-125Mg [Augmentin 875-125] 1 tab PO Q12HR 5 Days #10 tab 10/18/22 [Rx] Dicyclomine [Bentyl] 10 mg PO TID PRN #10 cap 10/18/22 [Rx] Ibuprofen [Motrin] 400 mg PO TID PRN tab 10/18/22 [Rx] Pantoprazole [Protonix] 40 mg PO BID 15 Days #30 tab 10/18/22 [Rx] Follow up Appointment(s)/Referral(s): Mary Salmon DO [Primary Care Provider] - 1-2 days Gabriela Davis MD [STAFF PHYSICIAN] - 1 Week Ambulatory/Diagnostic Orders: Comprehensive Metabolic Panel [LAB.AMB] Time Frame: 3 Days, Location: None Selected Activity/Diet/Wound Care/Special Instructions: Activity Limited until follow-up Follow-up with primary care provider on discharge Follow-up with GI outpatient in 1-2 weeks Continue taking medications as prescribed Recommend repeat labs in 2-3 days Discharge Disposition: HOME SELF-CARE
== END 2022-10-18 10:55 | disposition home or self-care (01) | DRG 440 ==
LOC: EC 04:27 → 4SSUR 08:34 → 6NMEDSUR 10-16 18:33
PROVIDERS: ADMIT Hospitalist; ATTEND Hospitalist
DX: K85.20 Alcohol induced acute pancreatitis without necrosis or infection (principal); K70.10 Alcoholic hepatitis without ascites; K52.9 Noninfective gastroenteritis and colitis, unspecified; Z86.19 Personal history of other infectious and parasitic diseases; F10.20 Alcohol dependence, uncomplicated; G50.0 Trigeminal neuralgia; Z87.891 Personal history of nicotine dependence; K83.8 Other specified diseases of biliary tract; Z90.49 Acquired absence of other specified parts of digestive tract; R91.1 Solitary pulmonary nodule; Z79.899 Other long term (current) drug therapy; Z28.21 Immunization not carried out because of patient refusal
CPT/HCPCS: 36415; 71045; 71260; 74177; 76705; 80053; 80074; 80076; 81003; 82150; 83690; 83735; 85025; 87040; 87045; 87046; 87324; 94760

== ENCOUNTER 2024-01-25 20:40 | Emergency (ER) | payer BC ==
--- NOTE | 2024-01-25 20:53 | ED ---
Abdominal Pain HPI - General Chief Complaint: Abdominal Pain Stated Complaint: Abd Pain Time Seen by Provider: 01/25/24 20:52 Source: patient, RN notes reviewed Mode of arrival: ambulatory Limitations: no limitations - History of Present Illness Initial Comments: 53-year-old female presents emergency department chief complaint of epigastric abdominal pain. Patient states pain started a few hours ago and feels similar as to when she has had pancreatitis in the past. Patient has been hospitalized multiple times in the past for pancreatitis. Endorses nausea and chills. Denies fevers, diarrhea, constipation, urinary symptoms. States that she had p ancreatitis for the first time due to complication from gallstones, previously from alcohol abuse as well. Patient states that she has been sober for the past year. - Related Data Home Medications Medication Instructions Recorded Confirmed Cholecalciferol [Vitamin D3 (25 25 mcg PO DAILY 10/15/22 10/15/22 Mcg = 1000 Iu)] Cyanocobalamin [Vitamin B-12] 500 mcg PO DAILY 10/15/22 10/15/22 Escitalopram [Lexapro] 5 mg PO DAILY 10/15/22 10/17/22 Estradiol/Norethindrone Acet 1 tab PO DAILY 10/15/22 10/15/22 0.5-0.1mg Tab Multivitamins, Thera [Multivitamin 1 tab PO DAILY 10/15/22 10/15/22 (formulary)] [place]-3/Dha/Epa/Fish Oil [Fish Oil 1 cap PO DAILY 10/15/22 10/15/22 1,000 mg Softgel] Pregabalin [Lyrica] 200 mg PO TID 10/15/22 10/15/22 Rosuvastatin [Crestor] 20 mg PO DAILY 10/15/22 10/15/22 Previous Rx's Medication Instructions Recorded Amoxic-Pot Clav 875-125Mg 1 tab PO Q12HR 5 Days #10 tab 10/18/22 [Augmentin 875-125] Dicyclomine [Bentyl] 10 mg PO TID PRN #10 cap 10/18/22 Ibuprofen [Motrin] 400 mg PO TID PRN tab 10/18/22 Pantoprazole [Protonix] 40 mg PO BID 15 Days #30 tab 10/18/22 Allergies Allergy/AdvReac Type Severity Reaction Status Date / Time No Known Allergies Allergy Verified 01/25/24 20:46 Review of Systems ROS Statement: Those systems with pertinent positive or pertinent negative responses have been documented in the HPI. ROS Other: All systems not noted in ROS Statement are negative. Past Medical History Additional Past Medical History / Comment(s): pancreatitis, trigeminal neuralgia History of Any Multi-Drug Resistant Organisms: None Reported Past Surgical History: Appendectomy, Cholecystectomy, Tonsillectomy Additional Past Surgical History / Comment(s): bunionectomy Past Anesthesia/Blood Transfusion Reactions: No Reported Reaction Past Psychological History: No Psychological Hx Reported Smoking Status: Former smoker Past Alcohol Use History: None Reported Past Drug Use History: Marijuana General Exam - General Exam Comments Initial Comments: Visual Physical Exam Vital signs reviewed General: Well-appearing, nontoxic, no acute distress. Head: Normocephalic, atraumatic Eyes: PERRLA, EOMI ENT: Airway patent Chest: Nonlabored breathing Skin: No visual rash, normal skin tone Neuro: Alert and oriented 3 Musculoskeletal: No gross abnormalities Limitations: no limitations General appearance: alert, in no apparent distress Respiratory exam: Present: normal lung sounds bilaterally. Absent: respiratory distress, wheezes, rales, rhonchi, stridor Cardiovascular Exam: Present: regular rate, normal rhythm, normal heart sounds. Absent: systolic murmur, diastolic murmur, rubs, gallop, clicks GI/Abdominal exam: Present: soft, tenderness (epigastric), normal bowel sounds. Absent: distended, guarding, rebound, rigid Extremities exam: Present: normal inspection, full ROM, normal capillary refill. Absent: tenderness, pedal edema, joint swelling, calf tenderness Back exam: Present: normal inspection Skin exam: Present: warm, dry, intact, normal color. Absent: rash Course Vital Signs 01/25/24 01/26/24 20:43 00:23 Temperature 97.9 F 98.2 F Pulse Rate 64 83 Respiratory 18 16 Rate Blood Pressure 127/79 112/71 O2 Sat by Pulse 100 96 Oximetry Medical Decision Making - Medical Decision Making Was pt. sent in by a medical professional or institution (, PA, SPECIAL SHOPPER, urgent care, hospital, or assisted...) When possible be specific @ -No Did you speak to anyone other than the patient for history (EMS, parent, family, police, friend...)? What history was obtained from this source @ -No Did you review nursing and triage notes (agree or disagree)? Why? @ -I reviewed and agree with nursing and triage notes Were old charts reviewed (outside hosp., previous admission, EMS record, old EKG, old radiological studies, urgent care reports/EKG's, assisted records)? Report findings @ -No old charts were reviewed Differential Diagnosis (chest pain, altered mental status, abdominal pain women, abdominal pain men, vaginal bleeding, weakness, fever, dyspnea, syncope, headache, dizziness, GI bleed, back pain, seizure, CVA, palpatations, mental health, musculoskeletal)? @ -Differential Abdominal Pain Women: Appendicitis, Cholecystitis, diverticulosis, ischemic bowel, pancreatitis, hepatitis, UTI, gastroenteritis, AAA, incarcerated hernia, bowel obstruction, constipation, inflammatory bowel, hepatitis, peptic ulcer disease, splenic infarction, perforated viscus, vulvitis, ovarian torsion, PID, kidney stone, placenta abruption, this is not meant to be an all-inclusive list EKG interpreted by me (3pts min.). @ none X-rays interpreted by me (1pt min.). @ -None done CT interpreted by me (1pt min.). @ -None done U/S interpreted by me (1pt. min.). @ -Abdominal ultrasound reveals that the patient is status postcholecystectomy with no hydronephrosis and limited evaluation due to bowel gas and pancreas unremarkable. What testing was considered but not performed or refused? (CT, X-rays, U/S, labs)? Why? @ -None What meds were considered but not given or refused? Why? @ -None Did you discuss the management of the patient with other professionals (professionals i.e. , PA, SPECIAL SHOPPER, lab, RT, psych nurse, medical social worker, director correctional agency, teacher, training officer, immigration case manager)? Give summary @ -No Was smoking cessation discussed for >3mins.? @ -No Was critical care preformed (if so, how long)? @ -No Were there social determinants of health that impacted care today? How? (Homelessness, low income, unemployed, alcoholism, drug addiction, transportation, low edu. Level, literacy, decrease access to med. care, [place] [facility], rehab)? @ -No Was there de-escalation of care discussed even if they declined (Discuss DNR or withdrawal of care, Hospice)? DNR status @ -No What co-morbidities impacted this encounter? (DM, HTN, Smoking, COPD, CAD, Cancer, CVA, ARF, Chemo, Hep., AIDS, mental health diagnosis, sleep apnea, morbid obesity)? @ -None Was patient admitted / discharged? Hospital course, mention meds given and route, prescriptions, significant lab abnormalities, going to OR and other pertinent info. @ -discharged. 53-year-old female with abdominal pain. On examination patient is resting comfortably, vitals are within normal limits. Patient has epigastric tenderness to palpation, bowel sounds are equal throughout all quadrants. patient is provided with fluids and pain medication pending ultrasound and labs. CBC unremarkable, lactic acid nonelevated 0.5, elevated lipase of 763, elevated AST 51 ALT of 39, send negative for acute process. Discussed with patient at bedside states that her abdominal pain has entirely pain medication however is requesting another dose. On reevaluation after second dose of medication patient states she is feeling better. Evaluated patient's laboratory studies and ultrasound imaging patient has a mild stable for discharge home with supportive treatment including patient states that she. Patient provided a starter pack for follow-up.. All questions answered at bedside strict return parameters discussed with patient she is verbalized understanding. Case discussed with Dr. Gilman. Undiagnosed new problem with uncertain prognosis? @ -No Drug Therapy requiring intensive monitoring for toxicity (Heparin, Nitro, Insulin, Cardizem)? @ -No Were any procedures done? @ -No Diagnosis/symptom? @ -pancreatitis Acute, or Chronic, or Acute on Chronic? @ -Acute on chronic Uncomplicated (without systemic symptoms) or Complicated (systemic symptoms)? @ -uncomplicated Side effects of treatment? @ -No Exacerbation, Progression, or Severe Exacerbation? @ -No Poses a threat to life or bodily function? How? (Chest pain, [place], NC, pneumonia, PE, COPD, DKA, ARF, appy, cholecystitis, CVA, Diverticulitis, Homicidal, Suicidal, threat to staff... and all critical care pts) @ -No - Lab Data Result diagrams: 01/25/24 21:31 01/25/24 21:31 Lab Results 01/25/24 01/25/24 01/25/24 Range/Units 21:31 21:31 21:31 WBC 6.7 (3.8-10.6) k/uL RBC 4.27 (3.80-5.40) m/uL Hgb 13.0 (11.4-16.0) gm/dL Hct 37.7 (34.0-46.0) % MCV 88.3 (80.0-100.0) fL MCH 30.5 (25.0-35.0) pg MCHC 34.6 (31.0-37.0) g/dL RDW 12.9 (11.5-15.5) % Plt Count 163 (150-450) k/uL MPV 9.3 Neutrophils % 52 % Lymphocytes % 36 % Monocytes % 5 % Eosinophils % 3 % Basophils % 1 % Neutrophils # 3.5 (1.3-7.7) k/uL Lymphocytes # 2.4 (1.0-4.8) k/uL Monocytes # 0.4 (0-1.0) k/uL Eosinophils # 0.2 (0-0.7) k/uL Basophils # 0.0 (0-0.2) k/uL Sodium 137 (137-145) mmol/L Potassium 3.6 (3.5-5.1) mmol/L Chloride 103 (98-107) mmol/L Carbon Dioxide 24 (22-30) mmol/L Anion Gap 10 mmol/L BUN 23 H (7-17) mg/dL Creatinine 0.68 (0.52-1.04) mg/dL Est GFR (CKD-EPI)AfAm >90 (>60 ml/min/1.73 sqM) Est GFR (CKD-EPI)NonAf >90 (>60 ml/min/1.73 sqM) Glucose 97 (74-99) mg/dL Plasma Lactic Acid Jason 0.5 L (0.7-2.0) mmol/L Calcium 9.2 (8.4-10.2) mg/dL Total Bilirubin 1.2 (0.2-1.3) mg/dL AST 51 H (14-36) U/L ALT 39 H (4-34) U/L Alkaline Phosphatase 122 (38-126) U/L Total Protein 6.8 (6.3-8.2) g/dL Albumin 4.4 (3.5-5.0) g/dL Amylase 104 (30-110) U/L Lipase 763 H (23-300) U/L Disposition Clinical Impression: Pancreatitis Disposition: HOME SELF-CARE Condition: Good Additional Instructions: Return to the emergency department any new or worsening symptoms. Follow a liquid diet over the next 36 hours and slowly reintroduce foods that are low- fat. Take pain medication only as needed. Is patient prescribed a controlled substance at d/c from ED?: No Referrals: Mary Salmon DO [Primary Care Provider] - 1-2 days Time of Disposition: 23:27
[2024-01-25] MEDS: HYDROmorphone 0.5 MG/0.5 ML SYRINGE IVP STA (21:34)
[2024-01-25] MEDS: SODIUM CHLORIDE 0.9% 1,000 ML IV STA (21:39)
[2024-01-25 22:16] LABS: Basophils % (A) 1 %; Eosinophils # (A) 0.2 k/uL (0-0.7); Eosinophils % (A) 3 %; HCT 37.7 % (34.0-46.0); Lymphocytes # (A) 2.4 k/uL (1.0-4.8); Lymphocytes % (A) 36 %; MCH 30.5 pg (25.0-35.0); MCHC 34.6 g/dL (31.0-37.0); MCV 88.3 fL (80.0-100.0); Mean Platelet Volume 9.3; Monocytes # (A) 0.4 k/uL (0-1.0); Monocytes % (A) 5 %; Neutrophils # (A) 3.5 k/uL (1.3-7.7); Neutrophils % (A) 52 %; Platelet Count 163 k/uL (150-450); RBC 4.27 m/uL (3.80-5.40); RDW 12.9 % (11.5-15.5); WBC 6.7 k/uL (3.8-10.6)
[2024-01-25 22:19] LABS: ALT 39 U/L (4-34); AST 51 U/L (14-36); African American GFR (CKD) >90 (>60 ml/min/1.73 sqM); Albumin 4.4 g/dL (3.5-5.0); Alkaline Phosphatase 122 U/L (38-126); Amylase 104 U/L (30-110); Anion Gap 10 mmol/L; Blood Urea Nitrogen 23 mg/dL (7-17); Calcium 9.2 mg/dL (8.4-10.2); Carbon Dioxide 24 mmol/L (22-30); Chloride 103 mmol/L (98-107); Glucose 97 mg/dL (74-99); Lipase 763 U/L (23-300); Non-African American GFR(CKD) >90 (>60 ml/min/1.73 sqM); Potassium 3.6 mmol/L (3.5-5.1); Sodium 137 mmol/L (137-145); Total Bilirubin 1.2 mg/dL (0.2-1.3); Total Protein 6.8 g/dL (6.3-8.2)
[2024-01-26] MEDS: ACET/COD 300 MG/30 MG STARTER PACK 6 TAB BTL PO STA (00:15)
[2024-01-26] MEDS: HYDROmorphone 1 MG/ML 1 ML SYRINGE IVP STA (00:16)
[2024-01-26] MEDS: ONDANSETRON 4 MG/2 ML VIAL IVP STA (00:17)
[2024-01-26 00:26] VITALS: BP 112/71; PULSE 83; RESP 16; TEMP 98.2
--- NOTE | 2024-01-26 00:51 | US ---
EXAM: US Abdomen Complete CLINICAL HISTORY: ITS.REASON US Reason: epigastric abdominal pain, hx of pancreatitis TECHNIQUE: Real-time ultrasound of the abdomen with image documentation. COMPARISON: 10/15/2022. FINDINGS: Liver: The liver measures 15.4 cm. No intrahepatic bile duct dilation. Gallbladder: Status post cholecystectomy. Negative ultrasound graphic Beal's sign. Common bile duct: Common bile duct measures 1.2 cm in caliber. No stones. No dilation. Pancreas: The pancreas is unremarkable. Kidneys: Right kidney measures 9 point by 4.5 x 4.16 m. Left kidney measures 9.6 x 4.7 x 5.2 cm. No renal calculus or hydronephrosis. Spleen: Spleen measures 10.2 cm. Aorta: Unremarkable. No evidence of abdominal aortic aneurysm. Inferior vena cava: Inferior vena cava is unremarkable. IMPRESSION: 1. The patient is status post cholecystectomy. 2. No hydronephrosis. 3. Limited ablation due to bowel gas. 4. The pancreas is unremarkable.
== END 2024-01-26 00:23 | disposition home or self-care (01) ==
LOC: EC 20:40
CPT/HCPCS: 36415; 76700; 80053; 82150; 83605; 83690; 85025; 96361; 96374; 96375; 96376; 99284

== ENCOUNTER 2024-04-29 14:48 | Emergency (ER) | payer BC ==
[2024-04-29 15:03] VITALS: TEMP 97.3
--- NOTE | 2024-04-29 15:13 | ED ---
General Adult HPI - General Source: patient, RN notes reviewed Mode of arrival: ambulatory Limitations: no limitations <Dorene Yip - Last Filed: 04/29/24 15:12> - General Source: patient, RN notes reviewed, old records reviewed Mode of arrival: ambulatory Limitations: no limitations - History of Present Illness -: hour(s) Radiation: non-radiation Severity scale (1-10): 4 Consistency: constant Improves with: none Worsens with: none Associated Symptoms: loss of appetite, nausea/vomiting <Venancio Dale - Last Filed: 04/30/24 13:15> - General Chief complaint: Abdominal Pain Stated complaint: Abd pain Time Seen by Provider: 04/29/24 15:01 - History of Present Illness Initial comments: Quick [id number] female presents emergency room chief complaint of epigastric abdominal pain with radiation into her chest that has been ongoing for the past hour. States that she is felt nauseous as well. Patient has a previous history of cholecystectomy and is concerned that she may have a flareup of pancreatitis. (Dorene Yip) This is a 53-year-old female to ER for significant epigastric pain with prior history of cholecystectomy and concern for pancreatitis. Patient has prior history of pancreatitis and this pain is severe with sudden onset (Anthony Dale) - Related Data Home Medications Medication Instructions Recorded Confirmed Cholecalciferol [Vitamin D3 (25 25 mcg PO DAILY 10/15/22 10/15/22 Mcg = 1000 Iu)] Cyanocobalamin [Vitamin B-12] 500 mcg PO DAILY 10/15/22 10/15/22 Escitalopram [Lexapro] 5 mg PO DAILY 10/15/22 10/17/22 Estradiol/Norethindrone Acet 1 tab PO DAILY 10/15/22 10/15/22 0.5-0.1mg Tab Multivitamins, Thera [Multivitamin 1 tab PO DAILY 10/15/22 10/15/22 (formulary)] [place]-3/Dha/Epa/Fish Oil [Fish Oil 1 cap PO DAILY 10/15/22 10/15/22 1,000 mg Softgel] Pregabalin [Lyrica] 200 mg PO TID 10/15/22 10/15/22 Rosuvastatin [Crestor] 20 mg PO DAILY 10/15/22 10/15/22 Previous Rx's Medication Instructions Recorded Amoxic-Pot Clav 875-125Mg 1 tab PO Q12HR 5 Days #10 tab 10/18/22 [Augmentin 875-125] Dicyclomine [Bentyl] 10 mg PO TID PRN #10 cap 10/18/22 Ibuprofen [Motrin] 400 mg PO TID PRN tab 10/18/22 Pantoprazole [Protonix] 40 mg PO BID 15 Days #30 tab 10/18/22 Allergies Allergy/AdvReac Type Severity Reaction Status Date / Time No Known Allergies Allergy Verified 04/29/24 15:03 Review of Systems ROS Other: All systems not noted in ROS Statement are negative. <Dorene Yip - Last Filed: 04/29/24 15:12> ROS Other: All systems not noted in ROS Statement are negative. <Venancio Dale - Last Filed: 04/30/24 13:15> ROS Statement: Those systems with pertinent positive or pertinent negative responses have been documented in the HPI. Past Medical History Additional Past Medical History / Comment(s): pancreatitis, trigeminal neuralgia History of Any Multi-Drug Resistant Organisms: None Reported Past Surgical History: Appendectomy, Cholecystectomy, Tonsillectomy Additional Past Surgical History / Comment(s): bunionectomy Past Anesthesia/Blood Transfusion Reactions: No Reported Reaction Past Psychological History: No Psychological Hx Reported Smoking Status: Former smoker Past Alcohol Use History: None Reported Past Drug Use History: Marijuana <Dorene Yip - Last Filed: 04/29/24 15:12> General Exam Limitations: no limitations <Dorene Yip - Last Filed: 04/29/24 15:12> General appearance: alert, in no apparent distress Head exam: Present: atraumatic, normocephalic, normal inspection Eye exam: Present: normal appearance, PERRL, EOMI. Absent: scleral icterus, conjunctival injection, periorbital swelling ENT exam: Present: normal exam, mucous membranes moist Neck exam: Present: normal inspection. Absent: tenderness, meningismus, lymphadenopathy Respiratory exam: Present: normal lung sounds bilaterally. Absent: respiratory distress, wheezes, rales, rhonchi, stridor Cardiovascular Exam: Present: regular rate, normal rhythm, normal heart sounds. Absent: systolic murmur, diastolic murmur, rubs, gallop, clicks GI/Abdominal exam: Present: soft, normal bowel sounds. Absent: distended, tenderness, guarding, rebound, rigid Extremities exam: Present: normal inspection, full ROM, normal capillary refill. Absent: tenderness, pedal edema, joint swelling, calf tenderness Back exam: Present: normal inspection Neurological exam: Present: alert, oriented X3, CN II-XII intact Psychiatric exam: Present: normal affect, normal mood Skin exam: Present: warm, dry, intact, normal color. Absent: rash <Venancio Dale - Last Filed: 04/30/24 13:15> - General Exam Comments Initial Comments: Visual Physical Exam Vital signs reviewed General: Well-appearing, nontoxic, no acute distress. Head: Normocephalic, atraumatic Eyes: PERRLA, EOMI ENT: Airway patent Chest: Nonlabored breathing Skin: No visual rash, normal skin tone Neuro: Alert and oriented 3 Musculoskeletal: No gross abnormalities (Stieler,Dorene) Course <Venancio Dale - Last Filed: 04/30/24 13:15> Vital Signs 04/29/24 04/29/24 04/29/24 15:00 18:00 19:23 Temperature 97.3 F L Pulse Rate 66 68 55 L Respiratory 16 20 16 Rate Blood Pressure 140/81 134/84 114/68 O2 Sat by Pulse 100 99 98 Oximetry - Reevaluation(s) Reevaluation #1: 04/29/24 19:01 Medical records reviewed (Venancio Dale) Reevaluation #2: 04/29/24 19:02 Patient symptoms improved here in the ER (Venancio Dale) Reevaluation #3: 04/29/24 19:02 Patient informed of results and questions answered (Venancio Dale) Reevaluation #4: Was pt. sent in by a medical professional or institution (, PA, [employer], urgent care, hospital, or alf...) When possible be specific @ -no Did you speak to anyone other than the patient for history (EMS, parent, family, police, friend...)? What history was obtained from this source @ -no Did you review nursing and triage notes (agree or disagree)? Why? @ -agree Are old charts reviewed (outside hosp., previous admission, EMS record, old EKG, old radiological studies, urgent care reports/EKG's, alf records)? Report findings @ -yes Differential Diagnosis (chest pain, altered mental status, abdominal pain women, abdominal pain men, vaginal bleeding, weakness, fever, dyspnea, syncope, headache, dizziness, GI bleed, back pain, seizure, CVA, palpatations, mental health, musculoskeletal)? @ -prior EKG interpreted by me (3pts min.). @ -yes X-rays interpreted by me (1pt min.). @ -yes negative for acute disease CT interpreted by me (1pt min.). @ -no U/S interpreted by me (1pt. min.). @ -no What testing was considered but not performed or refused? (CT, X-rays, U/S, labs)? Why? @ -none What meds were considered but not given or refused? Why? @ -none Did you discuss the management of the patient with other professionals (professionals i.e. , PA, [employer], lab, RT, psych nurse, social services aide, summer camp counselor, teacher, certification officer, case assistant)? Give summary @ -no Was smoking cessation discussed for >3mins.? @ -no Was critical care preformed (if so, how long)? @ -no Were there social determinants of health that impacted care today? How? (Homelessness, low income, unemployed, alcoholism, drug addiction, transport ation, low edu. Level, literacy, decrease access to med. care, detention, rehab)? @ -none Was there de-escalation of care discussed even if they declined (Discuss DNR or withdrawal of care, Hospice)? DNR status @ -no What co-morbidities impacted this encounter? (DM, HTN, Smoking, COPD, CAD, Cancer, CVA, ARF, Chemo, Hep., AIDS, mental health diagnosis, sleep apnea, morbid obesity)? @ -none Was patient admitted / discharged? Hospital course, mention meds given and route, prescriptions, significant lab abnormalities, going to OR and other pertinent info. @ - Undiagnosed new problem with uncertain prognosis? @ -no Drug Therapy requiring intensive monitoring for toxicity (Heparin, Nitro, Insulin, Cardizem)? @ -no Were any procedures done? @ -no Diagnosis/symptom? @ - Acute, or Chronic, or Acute on Chronic? @ -Acute Uncomplicated (without systemic symptoms) or Complicated (systemic symptoms)? @ -Complicated Side effects of treatment? @ -no Exacerbation, Progression, or Severe Exacerbation? @ -exacerbation Poses a threat to life or bodily function? How? (Chest pain, [place], [place], pneumonia, PE, COPD, DKA, ARF, appy, cholecystitis, CVA, Diverticulitis, Homicidal, Suicidal, threat to staff... and all critical care pts) @ -yes (Venancio Dale) Reevaluation #5: Differential Abdominal Pain Women: Appendicitis, Cholecystitis, diverticulosis, ischemic bowel, pancreatitis, hepatitis, UTI, gastroenteritis, AAA, incarcerated hernia, bowel obstruction, constipation, inflammatory bowel, hepatitis, peptic ulcer disease, splenic infarction, perforated viscus, vulvitis, ovarian torsion, PID, kidney stone, placenta abruption, this is not meant to be an all-inclusive list (Venancio Dale) EKG Findings - EKG Comments: EKG Findings:: EKG is sinus 65 WV 168 QRS 77 QTc 414 - EKG Results: EKG: interpreted by ERMD <Venancio Dale - Last Filed: 04/30/24 13:15> Medical Decision Making <Dorene Yip - Last Filed: 04/29/24 15:12> - Lab Data Result diagrams: 04/29/24 16:05 04/29/24 16:05 - Radiology Data Radiology results: report reviewed (X-ray KUB ultrasound abdomen and CT abdomen pelvis positive for no acute significant finding), image reviewed <Venancio Dale - Last Filed: 04/30/24 13:15> - Medical Decision Making I completed the quick note portion of this chart signed Dorene Yip PA-C (Dorene Yip) 53 female with abdominal pain discharge chronic pancreatitis no acute findings here in the ER that are significant or concerning (Venancio Dale) - Lab Data Lab Results 04/29/24 04/29/24 04/29/24 Range/Units 16:05 16:05 16:05 WBC 6.4 (3.8-10.6) k/uL RBC 4.45 (3.80-5.40) m/uL Hgb 13.6 (11.4-16.0) gm/dL Hct 40.2 (34.0-46.0) % MCV 90.3 (80.0-100.0) fL MCH 30.4 (25.0-35.0) pg MCHC 33.7 (31.0-37.0) g/dL RDW 12.8 (11.5-15.5) % Plt Count 173 (150-450) k/uL MPV 8.3 Neutrophils % 50 % Lymphocytes % 39 % Monocytes % 5 % Eosinophils % 3 % Basophils % 1 % Neutrophils # 3.2 (1.3-7.7) k/uL Lymphocytes # 2.5 (1.0-4.8) k/uL Monocytes # 0.3 (0-1.0) k/uL Eosinophils # 0.2 (0-0.7) k/uL Basophils # 0.0 (0-0.2) k/uL PT (10.0-12.5) sec INR (<1.2) APTT (22.0-30.0) sec Sodium 143 (137-145) mmol/L Potassium 4.1 (3.5-5.1) mmol/L Chloride 106 (98-107) mmol/L Carbon Dioxide 29 (22-30) mmol/L Anion Gap 8 mmol/L BUN 14 (7-17) mg/dL Creatinine 1.03 (0.52-1.04) mg/dL Est GFR (CKD-EPI)AfAm 72 (>60 ml/min/1.73 sqM) Est GFR (CKD-EPI)NonAf 62 (>60 ml/min/1.73 sqM) Glucose 86 (74-99) mg/dL Plasma Lactic Acid Jason 1.1 (0.7-2.0) mmol/L Calcium 9.7 (8.4-10.2) mg/dL Total Bilirubin 1.2 (0.2-1.3) mg/dL AST 39 H (14-36) U/L ALT 26 (4-34) U/L Alkaline Phosphatase 103 (38-126) U/L Troponin I (0.000-0.034) ng/mL Total Protein 7.4 (6.3-8.2) g/dL Albumin 4.8 (3.5-5.0) g/dL Amylase 56 (30-110) U/L Lipase 109 (23-300) U/L Urine Color Urine Appearance (Clear) Urine pH (5.0-8.0) Ur Specific [place] (1.001-1.035) Urine Protein (Negative) Urine Glucose (UA) (Negative) Urine Ketones (Negative) Urine Blood (Negative) Urine Nitrite (Negative) Urine Bilirubin (Negative) Urine Urobilinogen (<2.0) mg/dL Ur Leukocyte Esterase (Negative) 04/29/24 04/29/24 04/29/24 Range/Units 16:05 16:05 16:18 WBC (3.8-10.6) k/uL RBC (3.80-5.40) m/uL Hgb (11.4-16.0) gm/dL Hct (34.0-46.0) % MCV (80.0-100.0) fL MCH (25.0-35.0) pg MCHC (31.0-37.0) g/dL RDW (11.5-15.5) % Plt Count (150-450) k/uL MPV Neutrophils % % Lymphocytes % % Monocytes % % Eosinophils % % Basophils % % Neutrophils # (1.3-7.7) k/uL Lymphocytes # (1.0-4.8) k/uL Monocytes # (0-1.0) k/uL Eosinophils # (0-0.7) k/uL Basophils # (0-0.2) k/uL PT 10.4 (10.0-12.5) sec INR 0.9 (<1.2) APTT 26.6 (22.0-30.0) sec Sodium (137-145) mmol/L Potassium (3.5-5.1) mmol/L Chloride (98-107) mmol/L Carbon Dioxide (22-30) mmol/L Anion Gap mmol/L BUN (7-17) mg/dL Creatinine (0.52-1.04) mg/dL Est GFR (CKD-EPI)AfAm (>60 ml/min/1.73 sqM) Est GFR (CKD-EPI)NonAf (>60 ml/min/1.73 sqM) Glucose (74-99) mg/dL Plasma Lactic Acid Jason (0.7-2.0) mmol/L Calcium (8.4-10.2) mg/dL Total Bilirubin (0.2-1.3) mg/dL AST (14-36) U/L ALT (4-34) U/L Alkaline Phosphatase (38-126) U/L Troponin I <0.012 (0.000-0.034) ng/mL Total Protein (6.3-8.2) g/dL Albumin (3.5-5.0) g/dL Amylase (30-110) U/L Lipase (23-300) U/L Urine Color Colorless Urine Appearance Clear (Clear) Urine pH 7.0 (5.0-8.0) Ur Specific [place] 1.005 (1.001-1.035) Urine Protein Negative (Negative) Urine Glucose (UA) Negative (Negative) Urine Ketones Negative (Negative) Urine Blood Negative (Negative) Urine Nitrite Negative (Negative) Urine Bilirubin Negative (Negative) Urine Urobilinogen <2.0 (<2.0) mg/dL Ur Leukocyte Esterase Negative (Negative) Disposition <Dorene Yip - Last Filed: 04/29/24 15:12> Is patient prescribed a controlled substance at d/c from ED?: No Time of Disposition: 19:00 <Venancio Dale - Last Filed: 04/30/24 13:15> Clinical Impression: Abdominal pain Disposition: HOME SELF-CARE Condition: Good Instructions (If sedation given, give patient instructions): Abdominal Pain (ED) Referrals: Mary Salmon DO [REFERRING] - 1-2 days
--- NOTE | 2024-04-29 15:47 | US ---
EXAMINATION TYPE: US abdomen limited DATE OF EXAM: 04/29/2024 COMPARISON: US 2023, CT 2022 CLINICAL INDICATION: Female, 53 years old with history of RUQ/epigastric pain, hx hollie; Hx cholecyst ectomy, appendectomy. Pain x 1.5 hours. TECHNIQUE: Grayscale and color Doppler imaging of the right upper quadrant. FINDINGS: EXAM MEASUREMENTS: Liver Length: 13.8 cm Gallbladder Wall: Surgically absent CBD: 0.88 cm, color Doppler imaging was utilized to isolate the common bile duct for measurement. Right Kidney: 10.2 x 5.4 x 4.4 cm DERRICK FOLLOWER NOTES: Exam is limited due to gas. Pancreas: No abnormalities seen. Limited due to gas. Liver: Appears wnl Gallbladder: Surgically absent Evidence for sonographic Beal's sign: No CBD: Appears wnl post-cholecystectomy Right Kidney: *Renal pelvis appears to be dilated medially IMPRESSION: 1. No evidence for acute process. 2. Mild dilation of the renal pelvis correlate for signs and symptoms of obstructive uropathy [facility], Workstation: [facility], 04/29/2024 3:44 PM
[2024-04-29 16:20] LABS: Basophils % (A) 1 %; Eosinophils # (A) 0.2 k/uL (0-0.7); Eosinophils % (A) 3 %; HCT 40.2 % (34.0-46.0); HGB 13.6 gm/dL (11.4-16.0); Lymphocytes # (A) 2.5 k/uL (1.0-4.8); Lymphocytes % (A) 39 %; MCH 30.4 pg (25.0-35.0); MCHC 33.7 g/dL (31.0-37.0); MCV 90.3 fL (80.0-100.0); Mean Platelet Volume 8.3; Monocytes # (A) 0.3 k/uL (0-1.0); Monocytes % (A) 5 %; Neutrophils # (A) 3.2 k/uL (1.3-7.7); Neutrophils % (A) 50 %; Platelet Count 173 k/uL (150-450); RBC 4.45 m/uL (3.80-5.40); RDW 12.8 % (11.5-15.5); WBC 6.4 k/uL (3.8-10.6)
[2024-04-29 16:30] LABS: Glucose 86 mg/dL (74-99); Total Protein 7.4 g/dL (6.3-8.2)
[2024-04-29 16:31] LABS: ALT 26 U/L (4-34); AST 39 U/L (14-36); African American GFR (CKD) 72 (>60 ml/min/1.73 sqM); Albumin 4.8 g/dL (3.5-5.0); Alkaline Phosphatase 103 U/L (38-126); Amylase 56 U/L (30-110); Anion Gap 8 mmol/L; Blood Urea Nitrogen 14 mg/dL (7-17); Calcium 9.7 mg/dL (8.4-10.2); Carbon Dioxide 29 mmol/L (22-30); Chloride 106 mmol/L (98-107); Lipase 109 U/L (23-300); Non-African American GFR(CKD) 62 (>60 ml/min/1.73 sqM); Potassium 4.1 mmol/L (3.5-5.1); Sodium 143 mmol/L (137-145); Total Bilirubin 1.2 mg/dL (0.2-1.3)
[2024-04-29 16:33] LABS: INR 0.9 (<1.2); Partial Thromboplastin Time 26.6 sec (22.0-30.0); Prothrombin Time 10.4 sec (10.0-12.5)
--- NOTE | 2024-04-29 16:44 | XR ---
EXAMINATION TYPE: XR chest 2V DATE OF EXAM: 04/29/2024 4:38 PM COMPARISON: Previous chest radiograph 10/16/2022. CLINICAL INDICATION: Female, 53 years old with history of chest pain; [facility] TECHNIQUE: XR chest 2V Frontal and lateral views of the chest. FINDINGS: Lungs/Pleura: There is no evidence of pleural effusion, focal consolidation, or pneumothorax. Access ory azygous fissure noted. Pulmonary vascularity: Unremarkable. Heart/mediastinum: Cardiomediastinal silhouette is unremarkable. Musculoskeletal: No acute osseous pathology. Other findings: None IMPRESSION: No acute cardiopulmonary disease/process. [facility], , 04/29/2024 4:41 PM
[2024-04-29 18:10] LABS: Appearance,Urine Clear (Clear); Bilirubin,Urine Negative (Negative); Blood,Urine Negative (Negative); Color,Urine Colorless; Glucose,Urine (UA) Negative (Negative); Ketones,Urine Negative (Negative); Leukocyte Esterase,Urine Negative (Negative); Nitrite,Urine Negative (Negative); Protein,Urine Negative (Negative); Specific Gravity,Urine 1.005 (1.001-1.035); Urobilinogen,Urine <2.0 mg/dL (<2.0)
[2024-04-29] MEDS: KETOROLAC 15 MG/ML 1 ML VIAL IVP STA (18:16)
[2024-04-29] MEDS: ONDANSETRON 4 MG/2 ML VIAL IVP STA (18:18)
[2024-04-29] MEDS: HYDROmorphone 1 MG/ML 1 ML SYRINGE IVP STA (18:20)
--- NOTE | 2024-04-29 18:59 | CT ---
EXAMINATION TYPE: CT abdomen pelvis wo con DATE OF EXAM: 04/29/2024 6:34 PM COMPARISON: Multiple prior CT studies, most recently dated 10/16/2022. CLINICAL INDICATION: Female, 53 years old with history of pain; Epigastric pain TECHNIQUE: Axial CT abdomen pelvis wo con;Sagittal and coronal reformats were created on a separate workstation. Oral contrast used: without Oral Contrast (none if empty) CT DLP: 418.2 mGycm, Automated exposure control for dose reduction was used. FINDINGS: LOWER CHEST: Unremarkable ABDOMEN LIVER: Unremarkable GALLBLADDER AND BILE DUCTS: The gallbladder is surgically absent. PANCREAS: Unremarkable. SPLEEN: Unremarkable. ADRENAL GLANDS: Unremarkable. KIDNEYS AND URETERS: No evidence of hydronephrosis or renal calculus. The ureters are unremarkable. PELVIS BLADDER: No evidence for wall thickening or mass given limitations of exam. REPRODUCTIVE: Bilateral metallic adnexal clips noted. ABDOMEN & PELVIS STOMACH AND BOWEL: Stomach and duodenum are unremarkable. Left mid abdominal small bowel wall thicken ing with adjacent mild mesenteric stranding. No evidence of small bowel obstruction. PERITONEUM/RETROPERITONEUM: No evidence of pneumoperitoneum or free fluid. VASCULATURE: No evidence of aortic aneurysm. MUSCULOSKELETAL: No acute osseous abnormalities LYMPH NODES: No gross evidence for lymphadenopathy. Previous bilateral inguinal lymph node dissection . SOFT TISSUE/ABDOMINAL WALL: Unremarkable IMPRESSION: Mild wall thickening of left diane-abdominal small bowel loops with adjacent mesenteric stranding whic h could reflect an infectious or inflammatory enteritis in the appropriate clinical setting. [facility], , 04/29/2024 6:56 PM
[2024-04-29] MEDS: ACET/COD 300 MG/30 MG STARTER PACK 6 TAB BTL PO STA (19:19)
[2024-04-29] MEDS: ONDANSETRON 4 MG ODT STARTER PACK 2 TAB BTL PO STA (19:20)
[2024-04-29 19:24] VITALS: BP 114/68; PULSE 55; RESP 16
== END 2024-04-29 19:24 | disposition home or self-care (01) ==
LOC: EC 14:48
DX: R10.13 Epigastric pain (principal); Z87.891 Personal history of nicotine dependence
CPT/HCPCS: 36415; 93005; 80053; 82150; 83605; 83690; 84484; 85025; 85610; 85730; 81003; 71046; 76705; 74176; 99285; 96374; 96375 ×2; J2405; J1171; J1885; S0119

== ENCOUNTER 2024-05-04 06:02 | Emergency (ER) | payer BC ==
--- NOTE | 2024-05-04 06:29 | ED ---
Abdominal Pain HPI - General Chief Complaint: Abdominal Pain Stated Complaint: Kidney Stones Time Seen by Provider: 05/04/24 06:10 Source: patient, RN notes reviewed Mode of arrival: wheelchair Limitations: no limitations - History of Present Illness Initial Comments: 53-year-old female presents emergency department chief complaint of back discomfort, abdominal pain. Patient states she was seen today for similar reasons patient states pain intensified she has been vomiting. Denies any chest pain or shortness of breath no fever or chills. Patient states pain is much worse with movement but states it does not feel typical back pain states that she has a history of pancreatitis and states this pain is similar. Denies any melena, hematochezia, hematemesis or cough, emesis - Related Data Home Medications Medication Instructions Recorded Confirmed Cholecalciferol [Vitamin D3 (25 25 mcg PO DAILY 10/15/22 10/15/22 Mcg = 1000 Iu)] Cyanocobalamin [Vitamin B-12] 500 mcg PO DAILY 10/15/22 10/15/22 Escitalopram [Lexapro] 5 mg PO DAILY 10/15/22 10/17/22 Estradiol/Norethindrone Acet 1 tab PO DAILY 10/15/22 10/15/22 0.5-0.1mg Tab Multivitamins, Thera [Multivitamin 1 tab PO DAILY 10/15/22 10/15/22 (formulary)] [place]-3/Dha/Epa/Fish Oil [Fish Oil 1 cap PO DAILY 10/15/22 10/15/22 1,000 mg Softgel] Pregabalin [Lyrica] 200 mg PO TID 10/15/22 10/15/22 Rosuvastatin [Crestor] 20 mg PO DAILY 10/15/22 10/15/22 Previous Rx's Medication Instructions Recorded Amoxic-Pot Clav 875-125Mg 1 tab PO Q12HR 5 Days #10 tab 10/18/22 [Augmentin 875-125] Dicyclomine [Bentyl] 10 mg PO TID PRN #10 cap 10/18/22 Ibuprofen [Motrin] 400 mg PO TID PRN tab 10/18/22 Pantoprazole [Protonix] 40 mg PO BID 15 Days #30 tab 10/18/22 Ketorolac [Toradol] 10 mg PO Q8HR #15 tab 12/22/24 Omeprazole [PriLOSEC] 40 mg PO DAILY #14 cap 05/04/24 Ondansetron Odt [Zofran Odt] 4 mg PO Q8HR PRN #14 tab 05/04/24 Allergies Allergy/AdvReac Type Severity Reaction Status Date / Time No Known Allergies Allergy Verified 04/29/24 15:03 Review of Systems ROS Statement: Those systems with pertinent positive or pertinent negative responses have been documented in the HPI. ROS Other: All systems not noted in ROS Statement are negative. Past Medical History Additional Past Medical History / Comment(s): pancreatitis, trigeminal neuralgia History of Any Multi-Drug Resistant Organisms: None Reported Past Surgical History: Appendectomy, Cholecystectomy, Tonsillectomy Additional Past Surgical History / Comment(s): bunionectomy Past Anesthesia/Blood Transfusion Reactions: No Reported Reaction Past Psychological History: No Psychological Hx Reported Smoking Status: Former smoker Past Alcohol Use History: None Reported Past Drug Use History: Marijuana General Exam General appearance: alert, in no apparent distress Head exam: Present: atraumatic, normocephalic, normal inspection Eye exam: Present: normal appearance, PERRL, EOMI. Absent: scleral icterus, conjunctival injection, periorbital swelling ENT exam: Present: normal exam, mucous membranes moist Neck exam: Present: normal inspection, full ROM. Absent: tenderness, meningismus, lymphadenopathy Respiratory exam: Present: normal lung sounds bilaterally. Absent: respiratory distress, wheezes, rales, rhonchi, stridor Cardiovascular Exam: Present: regular rate, normal rhythm, normal heart sounds. Absent: systolic murmur, diastolic murmur, rubs, gallop, clicks GI/Abdominal exam: Present: soft, tenderness, normal bowel sounds. Absent: distended, guarding, rebound, rigid Back exam: Absent: CVA tenderness (R), CVA tenderness (L) Neurological exam: Present: alert, oriented X3 Skin exam: Present: warm, dry, intact, normal color. Absent: rash Course Vital Signs 05/04/24 06:15 Temperature 97.3 F L Pulse Rate 64 Respiratory 20 Rate Blood Pressure 103/60 O2 Sat by Pulse 97 Oximetry Medical Decision Making - Medical Decision Making Was pt. sent in by a medical professional or institution (, PA, HUMANITIES TEACHER, urgent care, hospital, or shelter...) When possible be specific @ -No Did you speak to anyone other than the patient for history (EMS, parent, family, police, friend...)? What history was obtained from this source @ -No Did you review nursing and triage notes (agree or disagree)? Why? @ -I reviewed and agree with nursing and triage notes Were old charts reviewed (outside hosp., previous admission, EMS record, old EKG, old radiological studies, urgent care reports/EKG's, shelter records)? Report findings @ -Reviewed recent CT ultrasound and chest x-ray along with CBC and CMP Differential Diagnosis (chest pain, altered mental status, abdominal pain women, abdominal pain men, vaginal bleeding, weakness, fever, dyspnea, syncope, hea dache, dizziness, GI bleed, back pain, seizure, CVA, palpatations, mental health, musculoskeletal)? @ -Differential Abdominal Pain Women: Appendicitis, Cholecystitis, diverticulosis, ischemic bowel, pancreatitis, hepatitis, UTI, gastroenteritis, AAA, incarcerated hernia, bowel obstruction, constipation, inflammatory bowel, hepatitis, peptic ulcer disease, splenic infarction, perforated viscus, vulvitis, ovarian torsion, PID, kidney stone, placenta abruption, this is not meant to be an all-inclusive list EKG interpreted by me (3pts min.). @ -None X-rays interpreted by me (1pt min.). @ -None done CT interpreted by me (1pt min.). @ -None done U/S interpreted by me (1pt. min.). @ -None done What testing was considered but not performed or refused? (CT, X-rays, U/S, labs)? Why? @ -None What meds were considered but not given or refused? Why? @ -None Did you discuss the management of the patient with other professionals (professionals i.e. , PA, HUMANITIES TEACHER, lab, RT, psych nurse, social work program coordinator, corporation lawyer, teacher, traffic division commanding officer, geriatric case manager)? Give summary @ -No Was smoking cessation discussed for >3mins.? @ -No Was critical care preformed (if so, how long)? @ -No Were there social determinants of health that impacted care today? How? (Homelessness, low income, unemployed, alcoholism, drug addiction, transportation, low edu. Level, literacy, decrease access to med. care, retirement, rehab)? @ -No Was there de-escalation of care discussed even if they declined (Discuss DNR or withdrawal of care, Hospice)? DNR status @ -No What co-morbidities impacted this encounter? (DM, HTN, Smoking, COPD, CAD, Cancer, CVA, ARF, Chemo, Hep., AIDS, mental health diagnosis, sleep apnea, morbid obesity)? @ -None Was patient admitted / discharged? Hospital course, mention meds given and route, prescriptions, significant lab abnormalities, going to OR and other pertinent info. @ -Discharge patient's laboratory studies essentially unremarkable. She feels greatly improved this time. This may be related to enteritis. Patient CT did show some inflammatory symptoms. Undiagnosed new problem with uncertain prognosis? @ -No Drug Therapy requiring intensive monitoring for toxicity (Heparin, Nitro, Insulin, Cardizem)? @ -No Were any procedures done? @ -No Diagnosis/symptom? @ -Abdominal pain Acute, or Chronic, or Acute on Chronic? @ -Acute Uncomplicated (without systemic symptoms) or Complicated (systemic symptoms)? @ -uncomplicated Side effects of treatment? @ -No Exacerbation, Progression, or Severe Exacerbation? @ -No Poses a threat to life or bodily function? How? (Chest pain, USA, DC, pneumonia, PE, COPD, DKA, ARF, appy, cholecystitis, CVA, Diverticulitis, Homicidal, Suicidal, threat to staff... and all critical care pts) @ -No - Lab Data Result diagrams: 05/04/24 06:31 05/04/24 06:31 Lab Results 05/04/24 05/04/24 05/04/24 Range/Units 06:31 06:31 06:31 WBC 13.6 H (3.8-10.6) k/uL RBC 4.82 (3.80-5.40) m/uL Hgb 15.0 (11.4-16.0) gm/dL Hct 44.0 (34.0-46.0) % MCV 91.3 (80.0-100.0) fL MCH 31.2 (25.0-35.0) pg MCHC 34.2 (31.0-37.0) g/dL RDW 12.9 (11.5-15.5) % Plt Count 186 (150-450) k/uL MPV 8.4 Neutrophils % 82 % Lymphocytes % 13 % Monocytes % 3 % Eosinophils % 1 % Basophils % 0 % Neutrophils # 11.1 H (1.3-7.7) k/uL Lymphocytes # 1.7 (1.0-4.8) k/uL Monocytes # 0.5 (0-1.0) k/uL Eosinophils # 0.1 (0-0.7) k/uL Basophils # 0.0 (0-0.2) k/uL Sodium 141 (137-145) mmol/L Potassium 3.8 (3.5-5.1) mmol/L Chloride 104 (98-107) mmol/L Carbon Dioxide 31 H (22-30) mmol/L Anion Gap 6 mmol/L BUN 19 H (7-17) mg/dL Creatinine 0.89 (0.52-1.04) mg/dL Est GFR (CKD-EPI)AfAm 86 (>60 ml/min/1.73 sqM) Est GFR (CKD-EPI)NonAf 74 (>60 ml/min/1.73 sqM) Glucose 95 (74-99) mg/dL Plasma Lactic Acid Jason 1.3 (0.7-2.0) mmol/L Calcium 10.0 (8.4-10.2) mg/dL Magnesium 1.9 (1.6-2.3) mg/dL Total Bilirubin 1.0 (0.2-1.3) mg/dL AST 42 H (14-36) U/L ALT 29 (4-34) U/L Alkaline Phosphatase 145 H (38-126) U/L Total Protein 7.9 (6.3-8.2) g/dL Albumin 5.0 (3.5-5.0) g/dL Lipase 61 (23-300) U/L Urine Color Urine Appearance (Clear) Urine pH (5.0-8.0) Ur Specific Malone (1.001-1.035) Urine Protein (Negative) Urine Glucose (UA) (Negative) Urine Ketones (Negative) Urine Blood (Negative) Urine Nitrite (Negative) Urine Bilirubin (Negative) Urine Urobilinogen (<2.0) mg/dL Ur Leukocyte Esterase (Negative) 05/04/24 Range/Units 07:04 WBC (3.8-10.6) k/uL RBC (3.80-5.40) m/uL Hgb (11.4-16.0) gm/dL Hct (34.0-46.0) % MCV (80.0-100.0) fL MCH (25.0-35.0) pg MCHC (31.0-37.0) g/dL RDW (11.5-15.5) % Plt Count (150-450) k/uL MPV Neutrophils % % Lymphocytes % % Monocytes % % Eosinophils % % Basophils % % Neutrophils # (1.3-7.7) k/uL Lymphocytes # (1.0-4.8) k/uL Monocytes # (0-1.0) k/uL Eosinophils # (0-0.7) k/uL Basophils # (0-0.2) k/uL Sodium (137-145) mmol/L Potassium (3.5-5.1) mmol/L Chloride (98-107) mmol/L Carbon Dioxide (22-30) mmol/L Anion Gap mmol/L BUN (7-17) mg/dL Creatinine (0.52-1.04) mg/dL Est GFR (CKD-EPI)AfAm (>60 ml/min/1.73 sqM) Est GFR (CKD-EPI)NonAf (>60 ml/min/1.73 sqM) Glucose (74-99) mg/dL Plasma Lactic Acid Jason (0.7-2.0) mmol/L Calcium (8.4-10.2) mg/dL Magnesium (1.6-2.3) mg/dL Total Bilirubin (0.2-1.3) mg/dL AST (14-36) U/L ALT (4-34) U/L Alkaline Phosphatase (38-126) U/L Total Protein (6.3-8.2) g/dL Albumin (3.5-5.0) g/dL Lipase (23-300) U/L Urine Color Colorless Urine Appearance Clear (Clear) Urine pH 6.5 (5.0-8.0) Ur Specific Malone 1.008 (1.001-1.035) Urine Protein Negative (Negative) Urine Glucose (UA) Negative (Negative) Urine Ketones Negative (Negative) Urine Blood Negative (Negative) Urine Nitrite Negative (Negative) Urine Bilirubin Negative (Negative) Urine Urobilinogen <2.0 (<2.0) mg/dL Ur Leukocyte Esterase Negative (Negative) Disposition Clinical Impression: Abdominal pain Disposition: HOME SELF-CARE Condition: Stable Instructions (If sedation given, give patient instructions): Abdominal Pain (ED) Additional Instructions: Please return to the Emergency Department if symptoms worsen or any other conc erns. Prescriptions: Omeprazole [PriLOSEC] 40 mg PO DAILY #14 cap Ketorolac [Toradol] 10 mg PO Q8HR #15 tab Ondansetron Odt [Zofran Odt] 4 mg PO Q8HR PRN #14 tab PRN Reason: Nausea Is patient prescribed a controlled substance at d/c from ED?: No Referrals: Carlton Spencer DO [Primary Care Provider] - 1-2 days Time of Disposition: 07:38
[2024-05-04] MEDS: HYDROmorphone 0.5 MG/0.5 ML SYRINGE IVP STA (06:37)
[2024-05-04] MEDS: SODIUM CHLORIDE 0.9% 2,000 ML IV STA (06:37)
[2024-05-04] MEDS: ONDANSETRON 4 MG/2 ML VIAL IVP STA (06:39)
[2024-05-04] MEDS: KETOROLAC 15 MG/ML 1 ML VIAL IVP STA (06:41)
[2024-05-04 06:52] LABS: Basophils % (A) 0 %; Eosinophils # (A) 0.1 k/uL (0-0.7); Eosinophils % (A) 1 %; Lymphocytes # (A) 1.7 k/uL (1.0-4.8); Lymphocytes % (A) 13 %; MCH 31.2 pg (25.0-35.0); MCHC 34.2 g/dL (31.0-37.0); MCV 91.3 fL (80.0-100.0); Mean Platelet Volume 8.4; Monocytes # (A) 0.5 k/uL (0-1.0); Monocytes % (A) 3 %; Neutrophils # (A) 11.1 k/uL (1.3-7.7); Neutrophils % (A) 82 %; Platelet Count 186 k/uL (150-450); RBC 4.82 m/uL (3.80-5.40); RDW 12.9 % (11.5-15.5); WBC 13.6 k/uL (3.8-10.6)
[2024-05-04 07:10] LABS: Appearance,Urine Clear (Clear); Bilirubin,Urine Negative (Negative); Blood,Urine Negative (Negative); Color,Urine Colorless; Glucose,Urine (UA) Negative (Negative); Ketones,Urine Negative (Negative); Leukocyte Esterase,Urine Negative (Negative); Nitrite,Urine Negative (Negative); PH, Urine 6.5 (5.0-8.0); Protein,Urine Negative (Negative); Specific Gravity,Urine 1.008 (1.001-1.035); Urobilinogen,Urine <2.0 mg/dL (<2.0)
[2024-05-04 07:11] LABS: ALT 29 U/L (4-34); AST 42 U/L (14-36); African American GFR (CKD) 86 (>60 ml/min/1.73 sqM); Alkaline Phosphatase 145 U/L (38-126); Anion Gap 6 mmol/L; Blood Urea Nitrogen 19 mg/dL (7-17); Carbon Dioxide 31 mmol/L (22-30); Chloride 104 mmol/L (98-107); Glucose 95 mg/dL (74-99); Lipase 61 U/L (23-300); Magnesium 1.9 mg/dL (1.6-2.3); Non-African American GFR(CKD) 74 (>60 ml/min/1.73 sqM); Potassium 3.8 mmol/L (3.5-5.1); Sodium 141 mmol/L (137-145); Total Protein 7.9 g/dL (6.3-8.2)
[2024-05-04] MEDS: HYDROcodone/APAP 5-325MG 1 EACH TAB PO STA (08:02)
[2024-05-04 08:11] VITALS: BP 100/61; PULSE 71; RESP 16; TEMP 97.9
== END 2024-05-04 08:11 | disposition home or self-care (01) ==
LOC: EC 06:02
DX: R10.9 Unspecified abdominal pain (principal); Z87.891 Personal history of nicotine dependence; Z90.49 Acquired absence of other specified parts of digestive tract
CPT/HCPCS: 36415; 80053; 83605; 83690; 83735; 85025; 81003; 99284; 96374; 96375; 96361; J2405; J1885; J1171